=== PATIENT | male | born 1960 | race Caucasian/White ===

== ENCOUNTER 2021-09-24 13:38 | Inpatient (IN) | payer MEDICARE ==
--- NOTE | 2021-09-24 13:53 | ED ---
General Adult HPI - General Stated complaint: SOB Time Seen by Provider: 09/24/21 13:39 Source: patient, EMS, RN notes reviewed, old records reviewed Limitations: no limitations - History of Present Illness Initial comments: 60-year-old male presenting for evaluation of increased dyspnea. Symptoms have been present today. He does report cough. No chest pain. No fever. He has a history of congestive heart failure and coronary artery disease. He has a pacemaker. He states he's had increased lower extremity edema as well. - Related Data Allergies Allergy/AdvReac Type Severity Reaction Status Date / Time isosorbide [From Imdur] Allergy Unknown Verified 09/24/21 13:55 quinapril [From Accupril] Allergy Unknown Verified 09/24/21 13:55 Sulfa (Sulfonamide Allergy Unknown Verified 09/24/21 13:55 Antibiotics) Review of Systems ROS Statement: Those systems with pertinent positive or pertinent negative responses have been documented in the HPI. ROS Other: All systems not noted in ROS Statement are negative. General Exam General appearance: alert, in no apparent distress Head exam: Present: atraumatic, normocephalic Eye exam: Present: normal appearance, PERRL ENT exam: Present: normal exam Neck exam: Present: normal inspection. Absent: tenderness, meningismus Respiratory exam: Present: wheezes. Absent: respiratory distress, rales Cardiovascular Exam: Present: regular rate, normal rhythm GI/Abdominal exam: Present: soft. Absent: distended, tenderness, guarding Extremities exam: Present: pedal edema Neurological exam: Present: alert, oriented X3, CN II-XII intact. Absent: motor sensory deficit Psychiatric exam: Present: normal affect, normal mood Skin exam: Present: warm, dry. Absent: cyanosis, diaphoretic Course Vital Signs 09/24/21 09/24/21 13:50 14:43 Temperature 97.8 F Pulse Rate 98 100 Respiratory 18 18 Rate Blood Pressure 117/80 O2 Sat by Pulse 96 Oximetry EKG Findings - EKG Comments: EKG Findings:: EKG: Ventricular paced rhythm rate of 103, MA interval 158, QRS duration 176, QTC [address] segment elevation Medical Decision Making - Medical Decision Making 60-year-old male with increased dyspnea, lower extremity edema. Patient is a current smoker. He has not been formally diagnosed with COPD. Additionally he has significant peripheral edema. I suspect the combination of CHF and COPD. Chest x-ray shows some pulmonary edema and cardiomegaly. No large focal pneumonia, no pneumothorax. He has a mild leukocytosis normal electrolytes. His initial troponin is negative. BNP is pending. He's given Lasix in the emergency department as well as albuterol, Atrovent and steroids. This is a multifactorial dyspnea. He is anticoagulated at baseline. Case discussed with Dr. Razo who will admit. The bilirubin is elevated 2.5 as well as AST and ALT. Patient does not have any abdominal pain or tenderness. He does not drink alcohol regularly. - Lab Data Result diagrams: 09/24/21 13:57 09/24/21 13:57 Lab Results 09/24/21 09/24/21 09/24/21 Range/Units 13:57 13:57 13:57 WBC 12.6 H (3.8-10.6) k/uL RBC 4.86 (4.30-5.90) m/uL Hgb 13.7 (13.0-17.5) gm/dL Hct 43.3 (39.0-53.0) % MCV 89.1 (80.0-100.0) fL MCH 28.1 (25.0-35.0) pg MCHC 31.6 (31.0-37.0) g/dL RDW 15.2 (11.5-15.5) % Plt Count 240 (150-450) k/uL MPV 8.5 Neutrophils % 78 % Lymphocytes % 11 % Monocytes % 9 % Eosinophils % 1 % Basophils % 1 % Neutrophils # 9.8 H (1.3-7.7) k/uL Lymphocytes # 1.4 (1.0-4.8) k/uL Monocytes # 1.1 H (0-1.0) k/uL Eosinophils # 0.1 (0-0.7) k/uL Basophils # 0.1 (0-0.2) k/uL Hypochromasia Slight PT 15.3 H (9.0-12.0) sec INR 1.5 H (<1.2) APTT 24.4 (22.0-30.0) sec Sodium 134 L (137-145) mmol/L Potassium 4.6 (3.5-5.1) mmol/L Chloride 101 (98-107) mmol/L Carbon Dioxide 23 (22-30) mmol/L Anion Gap 10 mmol/L BUN 28 H (9-20) mg/dL Creatinine 0.71 (0.66-1.25) mg/dL Est GFR (CKD-EPI)AfAm >90 (>60 ml/min/1.73 sqM) Est GFR (CKD-EPI)NonAf >90 (>60 ml/min/1.73 sqM) Glucose 103 H (74-99) mg/dL Calcium 8.5 (8.4-10.2) mg/dL Magnesium 1.9 (1.6-2.3) mg/dL Total Bilirubin 3.5 H (0.2-1.3) mg/dL AST 163 H (17-59) U/L ALT 150 H (4-49) U/L Alkaline Phosphatase 114 (38-126) U/L Troponin I (0.000-0.034) ng/mL Total Protein 6.6 (6.3-8.2) g/dL Albumin 3.6 (3.5-5.0) g/dL 09/24/21 Range/Units 13:57 WBC (3.8-10.6) k/uL RBC (4.30-5.90) m/uL Hgb (13.0-17.5) gm/dL Hct (39.0-53.0) % MCV (80.0-100.0) fL MCH (25.0-35.0) pg MCHC (31.0-37.0) g/dL RDW (11.5-15.5) % Plt Count (150-450) k/uL MPV Neutrophils % % Lymphocytes % % Monocytes % % Eosinophils % % Basophils % % Neutrophils # (1.3-7.7) k/uL Lymphocytes # (1.0-4.8) k/uL Monocytes # (0-1.0) k/uL Eosinophils # (0-0.7) k/uL Basophils # (0-0.2) k/uL Hypochromasia PT (9.0-12.0) sec INR (<1.2) APTT (22.0-30.0) sec Sodium (137-145) mmol/L Potassium (3.5-5.1) mmol/L Chloride (98-107) mmol/L Carbon Dioxide (22-30) mmol/L Anion Gap mmol/L BUN (9-20) mg/dL Creatinine (0.66-1.25) mg/dL Est GFR (CKD-EPI)AfAm (>60 ml/min/1.73 sqM) Est GFR (CKD-EPI)NonAf (>60 ml/min/1.73 sqM) Glucose (74-99) mg/dL Calcium (8.4-10.2) mg/dL Magnesium (1.6-2.3) mg/dL Total Bilirubin (0.2-1.3) mg/dL AST (17-59) U/L ALT (4-49) U/L Alkaline Phosphatase (38-126) U/L Troponin I 0.031 (0.000-0.034) ng/mL Total Protein (6.3-8.2) g/dL Albumin (3.5-5.0) g/dL Disposition Clinical Impression: Congestive heart failure, Acute exacerbation of chronic obstructive pulmonary disease Disposition: ADMITTED IP TO THIS HOSP Condition: Stable Is patient prescribed a controlled substance at d/c from ED?: No Referrals: None,Stated [Primary Care Provider] - 1-2 days Time of Disposition: 14:51
[2021-09-24 14:15] LABS: Basophils # (A) 0.1 k/uL (0-0.2); Basophils % (A) 1 %; Eosinophils # (A) 0.1 k/uL (0-0.7); Eosinophils % (A) 1 %; HCT 43.3 % (39.0-53.0); HGB 13.7 gm/dL (13.0-17.5); Hypochromasia Slight; Lymphocytes # (A) 1.4 k/uL (1.0-4.8); Lymphocytes % (A) 11 %; MCH 28.1 pg (25.0-35.0); MCHC 31.6 g/dL (31.0-37.0); MCV 89.1 fL (80.0-100.0); Mean Platelet Volume 8.5; Monocytes # (A) 1.1 k/uL (0-1.0); Monocytes % (A) 9 %; Neutrophils # (A) 9.8 k/uL (1.3-7.7); Neutrophils % (A) 78 %; Platelet Count 240 k/uL (150-450); RBC 4.86 m/uL (4.30-5.90); RDW 15.2 % (11.5-15.5); WBC 12.6 k/uL (3.8-10.6)
[2021-09-24 14:24] LABS: ALT 150 U/L (4-49); AST 163 U/L (17-59); African American GFR (CKD) >90 (>60 ml/min/1.73 sqM); Albumin 3.6 g/dL (3.5-5.0); Alkaline Phosphatase 114 U/L (38-126); Anion Gap 10 mmol/L; Blood Urea Nitrogen 28 mg/dL (9-20); Calcium 8.5 mg/dL (8.4-10.2); Carbon Dioxide 23 mmol/L (22-30); Chloride 101 mmol/L (98-107); Glucose 103 mg/dL (74-99); Magnesium 1.9 mg/dL (1.6-2.3); Non-African American GFR(CKD) >90 (>60 ml/min/1.73 sqM); Potassium 4.6 mmol/L (3.5-5.1); Sodium 134 mmol/L (137-145); Total Bilirubin 3.5 mg/dL (0.2-1.3); Total Protein 6.6 g/dL (6.3-8.2)
[2021-09-24] MEDS ORDERED: IPRATROPIUM-ALBUTEROL 3 ML NEB INHALATION STA (14:26)
[2021-09-24] MEDS ORDERED: ALBUTEROL NEBULIZED 2.5 MG/3 ML INHALATION STA (14:26)
[2021-09-24 14:31] LABS: INR 1.5 (<1.2); Partial Thromboplastin Time 24.4 sec (22.0-30.0); Prothrombin Time 15.3 sec (9.0-12.0)
--- NOTE | 2021-09-24 14:33 | XR ---
EXAMINATION TYPE: XR chest 2V DATE OF EXAM: 09/24/2021 COMPARISON: NONE HISTORY: Difficulty breathing TECHNIQUE: Frontal and lateral views of the chest are obtained. FINDINGS: The heart is enlarged. There is a generator in left pectoral region, leads are present wit hin the coronary sinus, right ventricle. No evident pneumothorax or sizable effusion. Interstitium is increased. Perihilar vascular indistinctness is noted. Bones are within normal limits. Aorta is dens e. IMPRESSION: Findings suggest early interstitial edema. There is cardiomegaly, correlate.
[2021-09-24] MEDS ORDERED: FUROSEMIDE 10 MG/ML 4 ML VIAL IV STA (14:34)
[2021-09-24] MEDS ORDERED: IPRATROPIUM-ALBUTEROL 3 ML NEB INHALATION PRN (14:48)
[2021-09-24] MEDS: methylPREDNISolone SOD SUCCI 125 MG/2 ML VIAL IV SCH (18:36)
[2021-09-24 19:04] LABS: Appearance,Urine Clear (Clear); Bilirubin,Urine Negative (Negative); Blood,Urine Small (Negative); Color,Urine Light Yellow; Glucose,Urine (UA) Negative (Negative); Hyaline Casts,Urine 5 /lpf (0-2); Ketones,Urine Negative (Negative); Leukocyte Esterase,Urine Negative (Negative); Mucus,Urine Rare /hpf; Nitrite,Urine Negative (Negative); Protein,Urine Negative (Negative); RBC,Urine 5 /hpf (0-5); Specific Gravity,Urine 1.007 (1.001-1.035); WBC,Urine <1 /hpf (0-5)
[2021-09-24] MEDS: IPRATROPIUM-ALBUTEROL 3 ML NEB INHALATION SCH (20:12)
[2021-09-24] MEDS: ATORVASTATIN 80 MG TAB PO SCH (20:27)
[2021-09-24] MEDS: APIXABAN 5 MG TAB PO SCH (20:27)
[2021-09-24] MEDS: FUROSEMIDE 10 MG/ML 4 ML VIAL IV SCH (20:27)
[2021-09-24] MEDS: carvediloL 6.25 MG TAB PO SCH (20:29)
[2021-09-24 20:39] LABS: Glucose,Whole Blood 143 mg/dL (70-110)
[2021-09-24] MEDS: INSULIN ASPART (NovoLOG) 100 UNIT/ML VIAL SQ SCH (20:47)
[2021-09-25] MEDS: methylPREDNISolone SOD SUCCI 125 MG/2 ML VIAL IV SCH ×3 (00:04→12:26)
--- NOTE | 2021-09-25 00:22 | CT ---
EXAMINATION TYPE: CT chest wo con DATE OF EXAM: 09/24/2021 COMPARISON: None HISTORY: COPD CT DLP: 500.1 mGycm Automated exposure control for dose reduction was used. Images obtained from the thoracic inlet to the diaphragm with no contrast. There is a moderate size right pleural effusion. Heart is enlarged. There is a 1.5 cm pretracheal lym ph node. There is coronary artery calcification. No pericardial effusion. There are no hilar masses. Thoracic aorta shows some atheromatous changes. No aneurysm. The ascending aorta measures 3.8 cm. Tho racic spine is intact. No compression fracture. Upper abdominal soft tissues are intact. IMPRESSION: Moderate cardiomegaly. Right pleural effusion. This could be chronic congestive heart failure. Nonspe cific pretracheal lymph node. No suspicious pulmonary mass. Mild increased pulmonary interstitial den sity.
[2021-09-25 06:06] LABS: Glucose,Whole Blood 120 mg/dL (70-110)
[2021-09-25] MEDS: carvediloL 6.25 MG TAB PO SCH ×2 (06:12→16:26)
[2021-09-25] MEDS: INSULIN ASPART (NovoLOG) 100 UNIT/ML VIAL SQ SCH ×4 (06:14→20:32)
--- NOTE | 2021-09-25 06:51 | HP ---
HISTORY AND PHYSICAL 60-year-old comes in with increasing shortness of breath and cough. No chest pain. No fevers. History of CHF, coronary artery disease, pacemaker, increased lower extremity edema. He was outside in the heat all day. He possibly has sleep apnea at home. ALLERGIES: ALLERGIES ARE TO IMDUR, ACCUPRIL, SULFA. REVIEW OF SYMPTOMS: 14-point review of systems as mentioned above, otherwise negative. PHYSICAL EXAM: Temperature 97, pulse 98-100, respiratory 16 to 18, blood pressure 117/80. Cardiovascular: S1-S2. Lungs: Wheezes at the bases. GI soft. Extremities: 2 to 3+ edema. GI is distended. Ophthalmologic: Pupils equal, round, reactive. ENT: External ear canals within normal limits. EKG shows ventricular paced rhythm. ASSESSMENT: 60-year-old white male with increasing dyspnea, lower edema,nicotine addiction, COPD exacerbation CHF, COPD, mild leukocytosis, normal electrolytes. Troponins negative. BNP is pending. Lasix in the ER, Atrovent, steroids. Continue current treatments. Consult Pulmonary and cardiology. Please see further orders. MMODL / IJN: [id number] /
[2021-09-25] MEDS: IPRATROPIUM-ALBUTEROL 3 ML NEB INHALATION SCH ×4 (08:02→19:59)
[2021-09-25] MEDS: FUROSEMIDE 10 MG/ML 4 ML VIAL IV SCH ×2 (08:21→17:29)
[2021-09-25] MEDS: APIXABAN 5 MG TAB PO SCH ×2 (08:21→20:11)
[2021-09-25] MEDS: ASPIRIN 81 MG PO SCH (08:21)
--- NOTE | 2021-09-25 09:25 | US ---
EXAMINATION TYPE: US abdomen complete DATE OF EXAM: 09/25/2021 COMPARISON: NONE CLINICAL HISTORY: elevated bilirubin. Abnormal labs EXAM MEASUREMENTS: Liver Length: 16.7 cm Gallbladder Wall: 0.2 cm CBD: 0.3 cm Spleen: 10.8 cm Right Kidney: 11.1 x 5.3 x 4.9 cm Left Kidney: 10.0 x 5.1 x 5.4 cm Limited due to bowel gas Pancreas: Obscured by bowel gas Liver: wnl Gallbladder: wnl Evidence for sonographic Arambula's sign: neg CBD: wnl Spleen: wnl Right Kidney: No hydronephrosis or masses seen Left Kidney: No hydronephrosis or masses seen Upper IVC: wnl Abd Aorta: Obscured by overlying bowel gas IMPRESSION: No acute process.
--- NOTE | 2021-09-25 11:06 | CA ---
Transthoracic Echo Report Name: Alex Martin Age: 60 Gender: M : 1960 Exam Date: 09/25/2021 08:33 Exam Location: [facility] Ht (in): 69 Wt (lb): 201 Ordering Physician: Alex Razo MD Attending/Referring Phys: Global Marketing Specialist Sydney Larsen RDCS Procedure CPT: Indications: chf Cardiac Hx: Hx of mi and stents,AICD Technical Quality: Good Contrast 1: Total Dose (mL): Contrast 2: Total Dose (mL): MEASUREMENTS (Male / Female) Normal Values 2D ECHO LV Diastolic Diameter PLAX 7.4 cm 4.2 - 5.9 / 3.9 - 5.3 cm LV Systolic Diameter PLAX 6.4 cm IVS Diastolic Thickness 1.4 cm 0.6 - 1.0 / 0.6 - 0.9 cm LVPW Diastolic Thickness 1.2 cm 0.6 - 1.0 / 0.6 - 0.9 cm LV Relative Wall Thickness 0.3 RV Internal Dim ED PLAX 2.6 cm LA Volume 105.1 cm??? 18 - 58 / 22 - 52 cm??? M-MODE Aortic Root Diameter MM 3.0 cm LA Systolic Diameter MM 3.8 cm LA Ao Ratio MM 1.3 MV E Point Septal Separation 2.1 cm AV Cusp Separation MM 2.0 cm DOPPLER AV Peak Velocity 106.9 cm/s AV Peak Gradient 4.6 mmHg AI Peak Velocity 154.3 cm/s AI Peak Gradient 9.5 mmHg AI Pressure Half Time 442.1 ms MV Peak Velocity 142.0 cm/s MV Peak Gradient 8.1 mmHg MV Mean Velocity 91.8 cm/s MV Mean Gradient 4.0 mmHg MV Velocity Time Integral 43.4 cm MV Area PHT 2.5 cm??? MR Peak Velocity 465.5 cm/s MR Peak Gradient 86.7 mmHg Mitral E Point Velocity 121.6 cm/s Mitral A Point Velocity 43.8 cm/s Mitral E to A Ratio 2.8 MV Deceleration Time 305.1 ms MV E' Velocity 4.8 cm/s Mitral E to MV E' Ratio 25.3 TR Peak Velocity 257.9 cm/s TR Peak Gradient 26.6 mmHg Right Ventricular Systolic Press 29.3 mmHg FINDINGS Left Ventricle Mildly increased septal wall thickness. Severely increased left ventricular diastolic diameter. Left ventricular ejection fraction is estimated at 20 %. Grade 3 diastolic dysfunction. Right Ventricle Normal right ventricular size and function. Pacemaker lead noted in right ventricle Right Atrium Right atrium not well visualized. Left Atrium Severely increased left atrial volume. Mildly increased left atrial area. Mitral Valve Mitral valve thickened. Mitral annular calcification. Mild mitral stenosis. Severe mitral regurgitation with predominantly posterior leaflet tethering and posteriorly directed jet. Aortic Valve Structurally normal aortic valve without significant sclerosis or stenosis. There is no aortic regurgitation. Tricuspid Valve Structurally normal tricuspid valve without significant stenosis. Pulmonary artery systolic pressure is normal. Pulmonic Valve Structurally normal pulmonic valve without significant stenosis. There is no pulmonic regurgitation. Pericardium Normal pericardium without effusion. Aorta Normal aortic root dimension. CONCLUSIONS Mild LVH Severe cardiomyopathy left ventricular ejection fraction 20% with global hypokinesis Dilated left atrium Severe mitral regurgitation with predominantly posterior leaflet tethering and posteriorly directed jet Previewed by: Dr. Ramirez Avery DO (Electronically Signed) Final Date: 25 September 2021 11:04
[2021-09-25 11:39] LABS: Glucose,Whole Blood 346 mg/dL (70-110)
--- NOTE | 2021-09-25 12:08 | P.CRDCN ---
History of Present Illness Consult date: 09/25/21 History of present illness: HISTORY OF PRESENT ILLNESS: This is a 60-year-old male with a past medical history significant for with paroxysmal atrial fibrillation, permanent pacemaker insertion, congestive heart failure, hypertension, hyperlipidemia, and nicotine dependence. Patient follows with a heel [facility] out of [facility]. We have been asked to see the patient in consultation for congestive heart failure. Patient examined at the bedside. The patient presented to the hospital for chief complaint of increasing shortness of breath. He states he has been feeling short of breath for the past 6 weeks but his shortness of breath got worse over the past couple days which prompted him to come to the emergency room. He denies any chest pain or pressure. Denies dizziness or lightheadedness. The patient was started on IV Lasix in the emergency room. * EKG reveals ventricular paced rhythm * Chest xray findings suggest early interstitial edema. Cardiomegaly * Laboratory data: WBC 12.6. Hemoglobin 13.7. Platelet count 240. Sodium 134. Potassium 4.6. BUN 28. Creatinine 0.71. AST 163. ALT 150. ProBNP 11,800. * Current home cardiac medications include lisinopril 2.5 mg daily, Lasix 40 mg twice a day, aspirin 81 mg daily, carvedilol 6.25 mg twice a day, Lipitor 80 mg at night, and Eliquis 5 mg twice a day REVIEW OF SYSTEMS: At the time of my exam: CONSTITUTIONAL: Denies fever or chills. HEENT: Denies blurred vision, vision changes, or eye pain. Denies hemoptysis CARDIOVASCULAR: Denies chest pain. Denies orthopnea. Denies PND. Denies palpitations RESPIRATORY: Denies shortness of breath. GASTROINTESTINAL: Denies abdominal pain. Denies nausea or vomiting. HEMATOLOGIC: Denies bleeding disorders. GENITOURINARY: Denies any blood in urine. SKIN: Denies pruitis. Denies rash. PHYSICAL EXAM: VITAL SIGNS: Reviewed. GENERAL: Well-developed in no acute distress. HEENT: Head is normocephalic. Pupils are equal, round. Sclerae anicteric. Mucous membranes of the mouth are moist. Neck supple. No JVD or thyromegaly LUNGS: Respirations even and unlabored. Lungs diminished with bibasilar crackles. Wheezing and rhonchi noted. HEART: Regular rate and rhythm. S1 and S2 heard. ABDOMEN: Soft. Nondistended. Nontender. EXTREMITIES: Normal range of motion. No clubbing or cyanosis. Peripheral pulses intact. 2+ lower extremity edema NEUROLOGIC: Awake and alert. Oriented x 3. ASSESSMENT: Shortness of breath Acute on chronic heart failure, type unknown, echo pending Possible COPD exacerbation Paroxysmal atrial fibrillation History of permanent pacemaker insertion Coronary artery disease Hypertension Hyperlipidemia Nicotine dependence Elevated LFTs PLAN: Obtain 2-D echo to assess cardiac structure and function Resume home cardiac medications Continue IV Lasix Daily weights Accurate I&O Monitor kidney function Further recommendations pending patient's course Nurse practitioner note has been reviewed by physician. Signing provider agrees with the documented findings, assessment, and plan of care. Past Medical History Past Medical History: Atrial Fibrillation, Heart Failure, Hypertension History of Any Multi-Drug Resistant Organisms: None Reported Past Surgical History: Appendectomy, Heart Catheterization With Stent, Orthopedic Surgery, Pacemaker Additional Past Surgical History / Comment(s): shoulder surgery, facial reconstruction of nose Date of Last Stent Placement:: 2012 Type of Cardiac Device: Permanent Pacemaker Device Placement Date:: 2012 Past Psychological History: No Psychological Hx Reported Smoking Status: Current every day smoker Past Alcohol Use History: None Reported Past Drug Use History: None Reported Medications and Allergies Home Medications Medication Instructions Recorded Confirmed Type Apixaban [Eliquis] 5 mg PO BID 09/24/21 09/24/21 History Aspirin EC [Ecotrin Low Dose] 81 mg PO DAILY 09/24/21 09/24/21 History Atorvastatin [Lipitor] 80 mg PO HS 09/24/21 09/24/21 History Furosemide [Lasix] 40 mg PO BID@0900,1600 09/24/21 09/24/21 History Nitroglycerin Sl Tabs [Nitrostat] 0.4 mg SL Q5M PRN 09/24/21 09/24/21 History carvediloL [Coreg] 6.25 mg PO BID 09/24/21 09/24/21 History lisinopriL 2.5 mg PO DAILY 09/24/21 09/24/21 History Allergies Allergy/AdvReac Type Severity Reaction Status Date / Time isosorbide [From Imdur] Allergy Anaphylaxis Verified 09/24/21 15:21 quinapril [From Accupril] Allergy Swelling Verified 07/19/22 15:21 hands, feet and joints Sulfa (Sulfonamide Allergy Rash/Hives Verified 09/24/21 15:21 Antibiotics) Physical Exam Vitals: Vital Signs Temp Pulse Pulse Resp BP BP Pulse Ox 09/25/21 11:17 89 20 112/76 92 L 09/25/21 08:18 97.6 F 83 16 110/71 96 09/25/21 08:11 87 09/25/21 08:02 82 09/25/21 08:00 83 09/25/21 03:49 97.8 F 93 18 87/62 88 L 09/25/21 01:57 20 09/25/21 00:43 97.6 F 81 20 102/71 93 L 09/24/21 20:20 101 H 18 09/24/21 20:14 98 18 09/24/21 20:00 97.8 F 66 24 102/76 99 09/24/21 18:55 97.9 F 84 17 95/71 94 L 09/24/21 18:07 98.4 F 88 24 106/57 96 09/24/21 16:35 103 H 18 117/85 98 09/24/21 15:16 105 H 22 105/72 99 09/24/21 15:02 101 H 18 09/24/21 14:43 100 18 09/24/21 13:50 97.8 F 98 18 117/80 96 Intake and Output 09/24/21 09/25/21 09/25/21 22:59 06:59 14:59 Intake Total 120 320 120 Output Total 1200 1300 Balance -1080 -980 120 Intake: Oral 120 320 120 Output: Urine 1200 1300 Other: Voiding Method Toilet Weight 95.254 kg 91.2 kg 90.8 kg Results 09/24/21 13:57 09/24/21 13:57 Cardiac Enzymes 09/24/21 09/24/21 Range/Units 13:57 13:57 AST 163 H (17-59) U/L Troponin I 0.031 (0.000-0.034) ng/mL Coagulation 09/24/21 Range/Units 13:57 PT 15.3 H (9.0-12.0) sec APTT 24.4 (22.0-30.0) sec CBC 09/24/21 Range/Units 13:57 WBC 12.6 H (3.8-10.6) k/uL RBC 4.86 (4.30-5.90) m/uL Hgb 13.7 (13.0-17.5) gm/dL Hct 43.3 (39.0-53.0) % Plt Count 240 (150-450) k/uL Comprehensive Metabolic Panel 09/24/21 Range/Units 13:57 Sodium 134 L (137-145) mmol/L Potassium 4.6 (3.5-5.1) mmol/L Chloride 101 (98-107) mmol/L Carbon Dioxide 23 (22-30) mmol/L BUN 28 H (9-20) mg/dL Creatinine 0.71 (0.66-1.25) mg/dL Glucose 103 H (74-99) mg/dL Calcium 8.5 (8.4-10.2) mg/dL AST 163 H (17-59) U/L ALT 150 H (4-49) U/L Alkaline Phosphatase 114 (38-126) U/L Total Protein 6.6 (6.3-8.2) g/dL Albumin 3.6 (3.5-5.0) g/dL Current Medications Generic Name Dose Route Start Last Admin Trade Name Freq PRN Reason Stop Dose Admin Albuterol/Ipratropium 3 ml 09/24/21 14:48 Ipratropium-Albuterol 3 Ml Neb INHALATION RT-Q4H PRN Shortness Of Breath Or Wheezing Albuterol/Ipratropium 3 ml 09/24/21 20:00 09/25/21 11:10 Ipratropium-Albuterol 3 Ml Neb INHALATION Not Given RT-QID JEFF Apixaban 5 mg 09/24/21 21:00 09/25/21 08:21 Apixaban 5 Mg Tab PO 5 mg BID JEFF Administration Protocol Aspirin 81 mg 09/25/21 09:00 09/25/21 08:21 Aspirin 81 Mg PO 81 mg DAILY JFEF Administration Atorvastatin Calcium 80 mg 09/24/21 21:00 09/24/21 20:27 Atorvastatin 80 Mg Tab PO 80 mg HS JEFF Administration Carvedilol 6.25 mg 09/24/21 21:00 09/25/21 06:12 Carvedilol 6.25 Mg Tab PO 6.25 mg AC-BID JEFF Administration Furosemide 40 mg 09/24/21 21:00 09/25/21 08:21 Furosemide 10 Mg/Ml 4 Ml Vial IV 40 mg Q12HR JEFF Administration Insulin Aspart 0 unit 09/24/21 21:00 09/25/21 06:14 Insulin Aspart (Novolog) 100 Unit/Ml Vial SQ Not Given ACHS PENDING SALE TO [facility] Protocol Lisinopril 2.5 mg 09/25/21 09:00 09/25/21 08:21 Lisinopril 2.5 Mg Tab PO 2.5 mg DAILY JEFF Administration Methylprednisolone Sodium Succinate 60 mg 09/24/21 18:00 09/25/21 06:11 Methylprednisolone Sod Succi 125 Mg/2 Ml Vial IV 60 mg Q6HR JEFF Administration Intake and Output 09/24/21 09/25/21 09/25/21 22:59 06:59 14:59 Intake Total 120 320 120 Output Total 1200 1300 Balance -1080 980 120 Intake: Oral 120 320 120 Output: Urine 1200 1300 Other: Voiding Method Toilet Weight 95.254 kg 91.2 kg 90.8 kg Patient Weight 09/26/21 06:59 Weight 90.8 kg 09/24/21 13:57 09/24/21 13:57
--- NOTE | 2021-09-25 12:14 | P.GSCN ---
History of Present Illness Consult date: 09/25/21 History of present illness: 60-year-old gentleman in the hospital with congestive heart failure. I been asked see the patient because of difficulty with urination. The patient states that he has had problems for the last several months. He notices decreasing flow increasing frequency and nocturia to 3 times. He has postvoid dribbling. He is never seen a urologist. He does not have a medical doctor. He is not had any treatment for this. He had a rectal examination in the past that was apparently "normal".His urine is clear Review of Systems All systems: negative - Constitutional Denies fever, Denies weight loss - EENT Eyes: denies blurred vision Ears, nose, mouth and throat: Denies dysphagia - Cardiovascular Denies chest pain, Denies shortness of breath - Respiratory Denies cough, Denies 7 - Gastrointestinal Reports as per HPI - Genitourinary Denies dysuria, Denies hematuria - Integumentary Denies rash, Denies unusual bruising - Neurological Denies headaches, Denies syncope - Hematologic/Lymphatic Denies easy bleeding, Denies easy bruising Past Medical History Past Medical History: Atrial Fibrillation, Heart Failure, Hypertension History of Any Multi-Drug Resistant Organisms: None Reported Past Surgical History: Appendectomy, Heart Catheterization With Stent, Orthopedic Surgery, Pacemaker Additional Past Surgical History / Comment(s): shoulder surgery, facial reconstruction of nose Date of Last Stent Placement:: 2012 Type of Cardiac Device: Permanent Pacemaker Device Placement Date:: 2012 Past Psychological History: No Psychological Hx Reported Smoking Status: Current every day smoker Past Alcohol Use History: None Reported Past Drug Use History: None Reported Medications and Allergies Home Medications Medication Instructions Recorded Confirmed Type Apixaban [Eliquis] 5 mg PO BID 09/24/21 09/24/21 History Aspirin EC [Ecotrin Low Dose] 81 mg PO DAILY 09/24/21 09/24/21 History Atorvastatin [Lipitor] 80 mg PO HS 09/24/21 09/24/21 History Furosemide [Lasix] 40 mg PO BID@0900,1600 09/24/21 09/24/21 History Nitroglycerin Sl Tabs [Nitrostat] 0.4 mg SL Q5M PRN 09/24/21 09/24/21 History carvediloL [Coreg] 6.25 mg PO BID 09/24/21 09/24/21 History lisinopriL 2.5 mg PO DAILY 09/24/21 09/24/21 History Allergies Allergy/AdvReac Type Severity Reaction Status Date / Time isosorbide [From Imdur] Allergy Anaphylaxis Verified 09/24/21 15:21 quinapril [From Accupril] Allergy Swelling Verified 09/24/21 15:21 hands, feet and joints Sulfa (Sulfonamide Allergy Rash/Hives Verified 09/24/21 15:21 Antibiotics) Surgical - Exam Vital Signs Temp Pulse Resp BP Pulse Ox 97.8 F 98 18 117/80 96 09/24/21 13:50 09/24/21 13:50 09/24/21 13:50 09/24/21 13:50 09/24/21 13:50 - General well developed, well nourished, no distress - Eyes PERRL - ENT no hearing loss - Neck trachea midline - Respiratory normal expansion, normal respiratory effort - Cardiovascular Rhythm: regular - Abdomen Abdomen: soft, non tender - Genitourinary prostate 30 gm benign normal penis with no external lesions, testicles present - Integumentary no rash, no growths - Musculoskeletal Lower extremity edema bilaterally normal posture - Psychiatric oriented to time, oriented to person, oriented to place, speech is normal, memory intact Results - Labs 09/24/21 13:57 09/24/21 13:57 Abnormal Lab Results - Last 24 Hours (Table) 09/24/21 09/24/21 09/24/21 Range/Units 13:57 13:57 13:57 WBC 12.6 H (3.8-10.6) k/uL Neutrophils # 9.8 H (1.3-7.7) k/uL Monocytes # 1.1 H (0-1.0) k/uL PT 15.3 H (9.0-12.0) sec INR 1.5 H (<1.2) Sodium 134 L (137-145) mmol/L BUN 28 H (9-20) mg/dL Glucose 103 H (74-99) mg/dL POC Glucose (mg/dL) (70-110) mg/dL Total Bilirubin 3.5 H (0.2-1.3) mg/dL AST 163 H (17-59) U/L ALT 150 H (4-49) U/L Urine Blood (Negative) Hyaline Casts (0-2) /lpf Urine Mucus (None) /hpf 09/24/21 09/24/21 09/25/21 Range/Units 18:46 20:36 06:05 WBC (3.8-10.6) k/uL Neutrophils # (1.3-7.7) k/uL Monocytes # (0-1.0) k/uL PT (9.0-12.0) sec INR (<1.2) Sodium (137-145) mmol/L BUN (9-20) mg/dL Glucose (74-99) mg/dL POC Glucose (mg/dL) 143 H 120 H (70-110) mg/dL Total Bilirubin (0.2-1.3) mg/dL AST (17-59) U/L ALT (4-49) U/L Urine Blood Small H (Negative) Hyaline Casts 5 H (0-2) /lpf Urine Mucus Rare H (None) /hpf 09/25/21 Range/Units 11:37 WBC (3.8-10.6) k/uL Neutrophils # (1.3-7.7) k/uL Monocytes # (0-1.0) k/uL PT (9.0-12.0) sec INR (<1.2) Sodium (137-145) mmol/L BUN (9-20) mg/dL Glucose (74-99) mg/dL POC Glucose (mg/dL) 346 H (70-110) mg/dL Total Bilirubin (0.2-1.3) mg/dL AST (17-59) U/L ALT (4-49) U/L Urine Blood (Negative) Hyaline Casts (0-2) /lpf Urine Mucus (None) /hpf Diabetes panel 09/24/21 Range/Units 13:57 Sodium 134 L (137-145) mmol/L Potassium 4.6 (3.5-5.1) mmol/L Chloride 101 (98-107) mmol/L Carbon Dioxide 23 (22-30) mmol/L BUN 28 H (9-20) mg/dL Creatinine 0.71 (0.66-1.25) mg/dL Glucose 103 H (74-99) mg/dL Calcium 8.5 (8.4-10.2) mg/dL AST 163 H (17-59) U/L ALT 150 H (4-49) U/L Alkaline Phosphatase 114 (38-126) U/L Total Protein 6.6 (6.3-8.2) g/dL Albumin 3.6 (3.5-5.0) g/dL Calcium panel 09/24/21 Range/Units 13:57 Calcium 8.5 (8.4-10.2) mg/dL Albumin 3.6 (3.5-5.0) g/dL Pituitary panel 09/24/21 Range/Units 13:57 Sodium 134 L (137-145) mmol/L Potassium 4.6 (3.5-5.1) mmol/L Chloride 101 (98-107) mmol/L Carbon Dioxide 23 (22-30) mmol/L BUN 28 H (9-20) mg/dL Creatinine 0.71 (0.66-1.25) mg/dL Glucose 103 H (74-99) mg/dL Calcium 8.5 (8.4-10.2) mg/dL Adrenal panel 09/24/21 Range/Units 13:57 Sodium 134 L (137-145) mmol/L Potassium 4.6 (3.5-5.1) mmol/L Chloride 101 (98-107) mmol/L Carbon Dioxide 23 (22-30) mmol/L BUN 28 H (9-20) mg/dL Creatinine 0.71 (0.66-1.25) mg/dL Glucose 103 H (74-99) mg/dL Calcium 8.5 (8.4-10.2) mg/dL Total Bilirubin 3.5 H (0.2-1.3) mg/dL AST 163 H (17-59) U/L ALT 150 H (4-49) U/L Alkaline Phosphatase 114 (38-126) U/L Total Protein 6.6 (6.3-8.2) g/dL Albumin 3.6 (3.5-5.0) g/dL - Imaging US - kidney/bladder: report reviewed, image reviewed Assessment and Plan Assessment: Impression: Congestive heart failure with coronary artery disease. BPH with obstruction. Recommendations: The patient will be started on Flomax. I'll check a postvoid residual. I will follow this with you.
--- NOTE | 2021-09-25 15:08 | P.CNPUL ---
History of Present Illness Consult date: 09/25/21 Reason for consult: dyspnea, cough, COPD, hypoxemia Chief complaint: Progressive shortness of breath for last 2-3 days History of present illness: Patient is a 60-year-old male with extensive history of smoking and nicotine use patient has prior medical history of hypertension and hypertensive cardiovascular disease patient presented into the hospital with progressive shortness of breath intermittent dry nonproductive cough and lower extremity edema. Patient does have a prior history of coronary artery disease status post pacemaker insertion, proximal atrial fibrillation, dyslipidemia, extensive history of smoking and nicotine use. Patient underwent computed tomography scan of the chest cardiomegaly is noted along with a right-sided pleural effusion CHF-like changes along with interstitial edema, ultrasound of the liver and gallbladder and abdomen no acute processes identified, echocardiogram revealed severe cardiomyopathy with left ventricular ejection fraction 20% with global hypokinesia along with severe MR has been noted. Labs reviewed white cell count is 12,600, PT/INR 15/1.5, sodium 134, urine creatinine is 28/0.7, total bilirubin is 3.5, AST ALT 150/163. Currently patient is being treated with bronchodilators 4 times a day along with continuation of direct oral anticoagulation, continuation of home medicines patient is being given Lasix 40 mg every 12 also on IV Solu-Medrol 40 mg every 8 hourly Review of Systems All systems: negative Past Medical History Past Medical History: Atrial Fibrillation, Heart Failure, Hypertension History of Any Multi-Drug Resistant Organisms: None Reported Past Surgical History: Appendectomy, Heart Catheterization With Stent, Orthopedic Surgery, Pacemaker Additional Past Surgical History / Comment(s): shoulder surgery, facial reconstruction of nose Date of Last Stent Placement:: 2012 Type of Cardiac Device: Permanent Pacemaker Device Placement Date:: 2012 Past Psychological History: No Psychological Hx Reported Smoking Status: Current every day smoker Past Alcohol Use History: None Reported Past Drug Use History: None Reported Medications and Allergies Home Medications Medication Instructions Recorded Confirmed Type Apixaban [Eliquis] 5 mg PO BID 09/24/21 09/24/21 History Aspirin EC [Ecotrin Low Dose] 81 mg PO DAILY 09/24/21 09/24/21 History Atorvastatin [Lipitor] 80 mg PO HS 09/24/21 09/24/21 History Furosemide [Lasix] 40 mg PO BID@0900,1600 09/24/21 09/24/21 History Nitroglycerin Sl Tabs [Nitrostat] 0.4 mg SL Q5M PRN 09/24/21 09/24/21 History carvediloL [Coreg] 6.25 mg PO BID 09/24/21 09/24/21 History lisinopriL 2.5 mg PO DAILY 09/24/21 09/24/21 History Allergies Allergy/AdvReac Type Severity Reaction Status Date / Time isosorbide [From Imdur] Allergy Anaphylaxis Verified 09/24/21 15:21 quinapril [From Accupril] Allergy Swelling Verified 09/24/21 15:21 hands, feet and joints Sulfa (Sulfonamide Allergy Rash/Hives Verified 09/24/21 15:21 Antibiotics) Physical Exam Vitals: Vital Signs Temp Pulse Pulse Resp BP BP Pulse Ox 09/25/21 13:23 89 09/25/21 11:17 89 20 112/76 92 L 09/25/21 08:18 97.6 F 83 16 110/71 96 09/25/21 08:11 87 09/25/21 08:02 82 09/25/21 08:00 83 09/25/21 03:49 97.8 F 93 18 87/62 88 L 09/25/21 01:57 20 09/25/21 00:43 97.6 F 81 20 102/71 93 L 09/24/21 20:20 101 H 18 09/24/21 20:14 98 18 09/24/21 20:00 97.8 F 66 24 102/76 99 09/24/21 18:55 97.9 F 84 17 95/71 94 L 09/24/21 18:07 98.4 F 88 24 106/57 96 09/24/21 16:35 103 H 18 117/85 98 09/24/21 15:16 105 H 22 105/72 99 09/24/21 15:02 101 H 18 Intake and Output 09/24/21 09/25/21 09/25/21 22:59 06:59 14:59 Intake Total 120 320 120 Output Total 1200 1300 Balance -1080 -980 120 Intake: Oral 120 320 120 Output: Urine 1200 1300 Other: Voiding Method Toilet Weight 95.254 kg 91.2 kg 90.8 kg - Constitutional General appearance: average body habitus, cooperative, disheveled - EENT Eyes: EOMI, PERRLA Ears: bilateral: normal - Neck Carotids: bilateral: upstroke normal Thyroid: bilateral: normal size - Respiratory Respiratory: bilateral: wheezing - Cardiovascular Rhythm: regular Heart sounds: normal: S1, S2 - Gastrointestinal General gastrointestinal: normal bowel sounds, soft - Integumentary + Edema of the lower extremity Integumentary: normal turgor - Neurologic Neurologic: CNII-XII intact - Musculoskeletal Musculoskeletal: gait normal, generalized weakness, strength equal bilaterally - Psychiatric Psychiatric: A&O x's 3, appropriate affect, intact judgment & insight Results - Laboratory Findings CBC and BMP: 09/24/21 13:57 09/24/21 13:57 PT/INR, D-dimer PT 15.3 sec (9.0-12.0) H 09/24/21 13:57 INR 1.5 (<1.2) H 09/24/21 13:57 Abnormal lab findings: Abnormal Labs 09/24/21 09/24/21 09/24/21 13:57 13:57 13:57 WBC 12.6 H Neutrophils # 9.8 H Monocytes # 1.1 H PT 15.3 H INR 1.5 H Sodium 134 L BUN 28 H Glucose 103 H POC Glucose (mg/dL) Total Bilirubin 3.5 H AST 163 H ALT 150 H Urine Blood Hyaline Casts Urine Mucus 09/24/21 09/24/21 09/25/21 18:46 20:36 06:05 WBC Neutrophils # Monocytes # PT INR Sodium BUN Glucose POC Glucose (mg/dL) 143 H 120 H Total Bilirubin AST ALT Urine Blood Small H Hyaline Casts 5 H Urine Mucus Rare H 09/25/21 11:37 WBC Neutrophils # Monocytes # PT INR Sodium BUN Glucose POC Glucose (mg/dL) 346 H Total Bilirubin AST ALT Urine Blood Hyaline Casts Urine Mucus - Diagnostic Findings Chest x-ray: report reviewed, image reviewed CT scan - chest: report reviewed, image reviewed Assessment and Plan Assessment: Acute on chronic systolic heart failure Right-sided pleural effusion related to above Progressive shortness of breath and lower extremity edema related to above COPD exacerbation Elevated liver enzyme related to passive hepatic congestion related to heart failure Lower extremity +3 edema related to heart failure/biventricular failure Severe mitral regurgitation Paroxysmal atrial fibrillation on diet control related ocular Mild hyponatremia Plan: Optimize therapy for heart failure including diuretics and afterload reducing agent Continue bronchodilators IV steroids Supplemental oxygen Deep breathing exercises incentive spirometry Smoking cessation counseling and advice Further plan of care as per clinical response of the patient Time with Patient: Greater than 30
[2021-09-25 16:15] LABS: Glucose,Whole Blood 140 mg/dL (70-110)
[2021-09-25] MEDS: methylPREDNISolone SOD SUCCI 40 MG/ML 1 ML VIAL IV SCH ×2 (16:26→23:10)
--- NOTE | 2021-09-25 17:18 | P.PN ---
Progress Note - Text Progress Note Date: 09/25/21 Interval history: I'm rounding for Dr. Alex Razo September 25: Some improvement in breathing. He does breakfast. Significant edema present. Some shortness of breath. Tired Active Medications Albuterol/Ipratropium (Ipratropium-Albuterol 3 Ml Neb) 3 ml INHALATION RT-Q4H PRN PRN Reason: Shortness Of Breath Or Wheezing Albuterol/Ipratropium (Ipratropium-Albuterol 3 Ml Neb) 3 ml INHALATION RT-QID JEFF Last Admin: 09/25/21 16:04 Dose: 3 ml Apixaban (Apixaban 5 Mg Tab) 5 mg PO BID PENDING SALE TO [facility]; Protocol Last Admin: 09/25/21 08:21 Dose: 5 mg Aspirin (Aspirin 81 Mg) 81 mg PO DAILY PENDING SALE TO [facility] Last Admin: 09/25/21 08:21 Dose: 81 mg Atorvastatin Calcium (Atorvastatin 80 Mg Tab) 80 mg PO HS PENDING SALE TO [facility] Last Admin: 09/24/21 20:27 Dose: 80 mg Carvedilol (Carvedilol 6.25 Mg Tab) 6.25 mg PO AC-BID PENDING SALE TO [facility] Last Admin: 09/25/21 16:26 Dose: 6.25 mg Furosemide (Furosemide 10 Mg/Ml 4 Ml Vial) 40 mg IV Q12HR PENDING SALE TO [facility] Last Admin: 09/25/21 08:21 Dose: 40 mg Insulin Aspart (Insulin Aspart (Novolog) 100 Unit/Ml Vial) 0 unit SQ ACHS JEFF; Protocol Last Admin: 09/25/21 16:26 Dose: 1 unit Lisinopril (Lisinopril 2.5 Mg Tab) 2.5 mg PO DAILY JEFF Last Admin: 09/25/21 08:21 Dose: 2.5 mg Methylprednisolone Sodium Succinate (Methylprednisolone Sod Succi 40 Mg/Ml 1 Ml Vial) 40 mg IV Q8HR JEFF Last Admin: 09/25/21 16:26 Dose: 40 mg Tamsulosin HCl (Tamsulosin 0.4 Mg Cap.Er.24h) 0.4 mg PO PC-SUPPER PENDING SALE TO [facility] On examination: VITAL SIGNS: [97.6, 91, 20, 93/61, 91% room air] GENERAL APPEARANCE: Laying in bed, awake, tired HEENT: Normal external appearance of nose and ear. Oral cavity normal EYES: Pupils equal. Conjunctiva normal. NECK: JVD possibly raised Mass not palpable. RESPIRATORY: Respiratory effort increased, basal crackles. CARDIOVASCULAR: First and second sounds normal. Significant edema ABDOMEN: Soft. Liver and spleen not palpable. No tenderness. No mass palpable. PSYCHIATRY: Alert and oriented x3. Mood and affect tired INVESTIGATIONS, reviewed in the clinical context: September 24: WBC 12.6 hemoglobin 13.7 potassium 4.6 creatinine 0.71 Abdominal ultrasound: Unremarkable CT chest: Moderate cardiomegaly. Right pleural effusion. 2-D echocardiogram: EF 20%. Severe MR. Assessment and plan: -Acute congestive heart failure exacerbation from systolic dysfunction EF 20%: Slow to respond IV Lasix 40 mg every 8. Coreg, Zestril 2.5 mg -BPH with obstruction Seen by Dr. Knox from urology. Started on Flomax -Right pleural effusion secondary to CHF Follow chest x-ray and clinically. Diuresis -Severe mitral regurgitation Follow with cardiology -Acute COPD exacerbation in a current smoker DuoNeb 4 times a day IV Solu-Medrol -Chronic nicotine dependence, cigarette smoker Nicotine patch -Persistent atrial fibrillation with a pacemaker Coreg 6.25 mg twice a day, eliquis 5 mg twice a day Follow BMP. IV Lasix. Jean-Pierre wrap. DuoNeb. Solu-Medrol. Up in chair as tolerated. Discussed with patient
[2021-09-25] MEDS: TAMSULOSIN 0.4 MG CAP.ER.24H PO SCH (17:29)
[2021-09-25] MEDS: ATORVASTATIN 80 MG TAB PO SCH (20:11)
[2021-09-25 20:20] LABS: Glucose,Whole Blood 168 mg/dL (70-110)
[2021-09-25] MEDS: NICOTINE 21MG/24HR PATCH TRANSDERM SCH (23:07)
[2021-09-26] MEDS: FUROSEMIDE 10 MG/ML 4 ML VIAL IV SCH ×2 (01:23→08:38)
[2021-09-26 06:12] LABS: Glucose,Whole Blood 141 mg/dL (70-110)
--- NOTE | 2021-09-26 06:12 | P.PN ---
Subjective Progress Note Date: 09/26/21 The patient was seen for symptomatic bh. His pvr were between 100-250 ml I have started him on flomax. We will see how it helps him Objective - Vital Signs Vital signs: Vital Signs Temp 97.4 F L 09/26/21 04:15 Pulse 94 09/26/21 04:15 Resp 16 09/26/21 04:15 BP 115/78 09/26/21 04:15 Pulse Ox 100 09/26/21 04:15 FiO2 Intake & Output 09/25/21 09/25/21 09/26/21 06:59 18:59 06:59 Intake Total 440 240 Output Total 2500 450 1590 Balance -2059 -210 -1590 Weight 91.2 kg 90.8 kg 88.7 kg Intake: Oral 440 240 Output: Urine 2500 450 1590 Other: Voiding Method Toilet # Voids 2 1 - Labs CBC & Chem 7: 09/24/21 13:57 09/24/21 13:57 Labs: Abnormal Lab Results - Last 24 Hours (Table) 09/25/21 09/25/21 09/25/21 Range/Units 11:37 16:14 20:18 POC Glucose (mg/dL) 346 H 140 H 168 H (70-110) mg/dL
[2021-09-26] MEDS: carvediloL 6.25 MG TAB PO SCH ×2 (06:20→17:27)
[2021-09-26] MEDS: INSULIN ASPART (NovoLOG) 100 UNIT/ML VIAL SQ SCH ×4 (06:20→21:33)
[2021-09-26] MEDS: IPRATROPIUM-ALBUTEROL 3 ML NEB INHALATION SCH ×4 (07:19→20:14)
[2021-09-26] MEDS: NICOTINE 21MG/24HR PATCH TRANSDERM SCH (08:34)
[2021-09-26] MEDS: ASPIRIN 81 MG PO SCH (08:38)
[2021-09-26] MEDS: APIXABAN 5 MG TAB PO SCH ×2 (08:38→19:51)
[2021-09-26] MEDS: methylPREDNISolone SOD SUCCI 40 MG/ML 1 ML VIAL IV SCH ×2 (08:38→19:51)
[2021-09-26 08:46] LABS: African American GFR (CKD) >90 (>60 ml/min/1.73 sqM); Anion Gap 5 mmol/L; Blood Urea Nitrogen 34 mg/dL (9-20); Calcium 8.5 mg/dL (8.4-10.2); Carbon Dioxide 35 mmol/L (22-30); Chloride 100 mmol/L (98-107); Glucose 124 mg/dL (74-99); Non-African American GFR(CKD) >90 (>60 ml/min/1.73 sqM); Potassium 3.8 mmol/L (3.5-5.1); Sodium 140 mmol/L (137-145)
[2021-09-26 11:37] LABS: Glucose,Whole Blood 174 mg/dL (70-110)
--- NOTE | 2021-09-26 12:27 | P.PN ---
Subjective Progress Note Date: 09/26/21 HISTORY OF PRESENT ILLNESS: This is a 60-year-old male with a past medical history significant for with paroxysmal atrial fibrillation, permanent pacemaker insertion, congestive heart failure, hypertension, hyperlipidemia, and nicotine dependence. Patient follows with a software licensing analyst out of [place] [place]. We have been asked to see the patient in consultation for congestive heart failure. Patient examined at the bedside. The patient presented to the hospital for chief complaint of increasing shortness of breath. He states he has been feeling short of breath for the past 6 weeks but his shortness of breath got worse over the past couple days which prompted him to come to the emergency room. He denies any chest pain or pressure. Denies dizziness or lightheadedness. The patient was started on IV Lasix in the emergency room. * EKG reveals ventricular paced rhythm * Chest xray findings suggest early interstitial edema. Cardiomegaly * Laboratory data: WBC 12.6. Hemoglobin 13.7. Platelet count 240. Sodium 134. Potassium 4.6. BUN 28. Creatinine 0.71. AST 163. ALT 150. ProBNP 11,800. * Current home cardiac medications include lisinopril 2.5 mg daily, Lasix 40 mg twice a day, aspirin 81 mg daily, carvedilol 6.25 mg twice a day, Lipitor 80 mg at night, and Eliquis 5 mg twice a day 09/26/2021 Patient examined this morning at the bedside. Patient denies chest pain or pressure. He states his shortness of breath has improved. He is laying flat in bed and appears comfortable. Vital signs are stable. Patient remains on IV Lasix. BUN 34. Creatinine 0.70. Echocardiogram obtained reveals ejection fraction 20%, global hypokinesis, mild LVH, severe mitral regurgitation PHYSICAL EXAM: VITAL SIGNS: Reviewed. GENERAL: Well-developed in no acute distress. HEENT: Head is normocephalic. Pupils are equal, round. Sclerae anicteric. Mucous membranes of the mouth are moist. Neck supple. No JVD or thyromegaly LUNGS: Respirations even and unlabored. Lungs diminished. HEART: Regular rate and rhythm. S1 and S2 heard. ABDOMEN: Soft. Nondistended. Nontender. EXTREMITIES: Normal range of motion. No clubbing or cyanosis. Peripheral pulses intact. 1+ lower extremity edema NEUROLOGIC: Awake and alert. Oriented x 3. ASSESSMENT: Shortness of breath Acute on chronic heart failure with reduced EF Possible COPD exacerbation Paroxysmal atrial fibrillation History of permanent pacemaker insertion Coronary artery disease Hypertension Hyperlipidemia Nicotine dependence Elevated LFTs PLAN: Continue current cardiac medications Discontinue IV Lasix Begin oral Lasix 80 mg in the morning and 40 mg in the afternoon Daily weights Accurate I&O Monitor kidney function Further recommendations pending patient's course Nurse practitioner note has been reviewed by physician. Signing provider agrees with the documented findings, assessment, and plan of care. Objective - Vital Signs Vital signs: Vital Signs Temp 97.8 F 09/26/21 08:34 Pulse 90 09/26/21 11:10 Resp 18 09/26/21 11:10 BP 106/75 09/26/21 11:10 Pulse Ox 95 09/26/21 11:10 FiO2 Intake & Output 09/25/21 09/26/21 09/26/21 18:59 06:59 18:59 Intake Total 240 240 120 Output Total 450 1989 Balance -210 -1750 120 Weight 90.8 kg 88.7 kg Intake: Oral 240 240 120 Output: Urine 450 1989 Other: Voiding Method Toilet Toilet Urinal # Voids 2 1 - Labs CBC & Chem 7: 09/24/21 13:57 09/26/21 07:43 Labs: Abnormal Lab Results - Last 24 Hours (Table) 09/25/21 09/25/21 09/26/21 Range/Units 16:14 20:18 06:10 Carbon Dioxide (22-30) mmol/L BUN (9-20) mg/dL Glucose (74-99) mg/dL POC Glucose (mg/dL) 140 H 168 H 141 H (70-110) mg/dL 09/26/21 09/26/21 Range/Units 07:43 11:35 Carbon Dioxide 35 H (22-30) mmol/L BUN 34 H (9-20) mg/dL Glucose 124 H (74-99) mg/dL POC Glucose (mg/dL) 174 H (70-110) mg/dL
--- NOTE | 2021-09-26 14:15 | P.CNNES ---
History of Present Illness Consult date: 09/26/21 Requesting physician: Alex Razo Reason for Consult: new intermittent confusion History of Present Illness: This is a 60-year-old gentleman with history of congestive heart failure, permanent pacemaker, hypertension, hyperlipidemia who presented to the emergency department for short of breath. Neurology is consulted for intermittent confusion. Per the nurse, it seems his daughter notified the nurse recently at home he has intermittent episodes of confusion. During this hospital visit, noticed noticed he had intermittent subtle confusions. No jerking of any extremities, foaming around the mouth. Patient stated at home and had a episode of syncopal episode while sitting down. He felt he was leaning forward and unsure how long episode was. Denies tongue bite or bowel incontinence. Not sure about urinary incontinence. He has been having worsening of short of breath recently. Denies history of seizures or stroke. Denies of headache, fever recently. Denies neck pain. He does smoke 1.5 PPD. Denies illcit drug use. SOME OF THE WORK-UP DURING THIS HOSPITAL VISIT CONSISTED OF: Patient has been afebrile. Initial wbc is 12.6K. AST 163, LT 150. Sugar 140 and got as high as 300's. 2D echo: severe cardiomyopathy with left fraction 20% with global hypokines, Dilated left atrial. Severe mitral regurgitation with predominately posterior leaflet tethering and posteriorly directed jet. Review of Systems Review of system: The 12 point system was reviewed and apparent positive and negative per HPI. Past Medical History Past Medical History: Atrial Fibrillation, Heart Failure, Hypertension History of Any Multi-Drug Resistant Organisms: None Reported Past Surgical History: Appendectomy, Heart Catheterization With Stent, Orthopedic Surgery, Pacemaker Additional Past Surgical History / Comment(s): shoulder surgery, facial reconst ruction of nose Date of Last Stent Placement:: 2012 Type of Cardiac Device: Permanent Pacemaker Device Placement Date:: 2012 Past Psychological History: No Psychological Hx Reported Smoking Status: Current every day smoker Past Alcohol Use History: None Reported Past Drug Use History: None Reported Medications and Allergies Home Medications Medication Instructions Recorded Confirmed Type Apixaban [Eliquis] 5 mg PO BID 09/24/21 09/24/21 History Aspirin EC [Ecotrin Low Dose] 81 mg PO DAILY 09/24/21 09/24/21 History Atorvastatin [Lipitor] 80 mg PO HS 09/24/21 09/24/21 History Furosemide [Lasix] 40 mg PO BID@0900,1600 09/24/21 09/24/21 History Nitroglycerin Sl Tabs [Nitrostat] 0.4 mg SL Q5M PRN 09/24/21 09/24/21 History carvediloL [Coreg] 6.25 mg PO BID 09/24/21 09/24/21 History lisinopriL 2.5 mg PO DAILY 09/24/21 09/24/21 History Allergies Allergy/AdvReac Type Severity Reaction Status Date / Time isosorbide [From Imdur] Allergy Anaphylaxis Verified 09/24/21 15:21 quinapril [From Accupril] Allergy Swelling Verified 09/24/21 15:21 hands, feet and joints Sulfa (Sulfonamide Allergy Rash/Hives Verified 09/24/21 15:21 Antibiotics) Physical Examination - Vital Signs Vital Signs: Vital Signs Temp Pulse Pulse Resp BP Pulse Ox 09/26/21 11:10 90 18 106/75 95 09/26/21 11:08 88 09/26/21 10:56 80 09/26/21 08:34 97.8 F 82 20 110/74 93 L 09/26/21 07:29 96 09/26/21 07:20 92 09/26/21 04:15 97.4 F L 94 16 115/78 100 09/26/21 01:41 97.5 F L 81 17 99/64 96 09/25/21 20:16 93 09/25/21 20:06 91 09/25/21 20:00 97.8 F 82 18 95/58 92 L 09/25/21 16:13 92 09/25/21 16:07 88 L 09/25/21 16:04 88 09/25/21 15:35 97.6 F 91 20 93/61 91 L Intake and Output 09/25/21 09/26/21 09/26/21 22:59 06:59 14:59 Intake Total 120 240 240 Output Total 850 1590 425 Balance -730 -1350 -185 Intake: Oral 120 240 240 Output: Urine 850 1590 425 Other: Voiding Method Toilet Urinal # Voids 2 1 Weight 88.7 kg GENERAL: The patient is lying in bed and is not in acute distress. HENT: Supple neck. CHEST: The heart rate is regular rate rhythm. No murmurs to auscultation. LUNG: Clear to auscultation bilaterally no wheezing noted throughout. Not labored breathing. ABDOMEN/GI: Bowel sounds present in all 4 quadrants. No tenderness to palpation throughout. NEUROLOGICAL: Higher mental function: The patient is awake, alert, oriented to self, place and time. Patient is following simple commands. Is able to identify objects correctly (pen, watch, glasses). Correctly stated he is currently in [place]. No aphasia and no neglect. Cranial nerves: The pupils are round, equal and reactive to light and accom modation. Visual drummond are full to confrontation throughout. Extraocular movement is intact no nystagmus is noted. Facial sensation is normal to touch throughout. The facial strength is normal throughout. Hearing is normal bilaterally to hand rub. Tongue is midline and moved [id number] without any difficulty. No dysarthria is noted. Shoulder shrug is normal bilaterally. Motor: The strength is 5 over 5 throughout. Normal tone and bulk. Has moderate amount edema in lowers 2+. Cerebellum: Normal finger to nose bilaterally. Sensation: Sensation is normal to touch throughout. Reflexes (right/left): 1+ throughout. Plantars are downgoing bilaterally. Results - Laboratory Findings CBC and BMP: 09/24/21 13:57 09/26/21 07:43 Abnormal Lab Findings: Abnormal Labs 09/24/21 09/24/21 09/24/21 13:57 13:57 13:57 WBC 12.6 H Neutrophils # 9.8 H Monocytes # 1.1 H PT 15.3 H INR 1.5 H Sodium 134 L Carbon Dioxide BUN 28 H Glucose 103 H POC Glucose (mg/dL) Total Bilirubin 3.5 H AST 163 H ALT 150 H Urine Blood Hyaline Casts Urine Mucus 09/24/21 09/24/21 09/25/21 18:46 20:36 06:05 WBC Neutrophils # Monocytes # PT INR Sodium Carbon Dioxide BUN Glucose POC Glucose (mg/dL) 143 H 120 H Total Bilirubin AST ALT Urine Blood Small H Hyaline Casts 5 H Urine Mucus Rare H 09/25/21 09/25/21 09/25/21 11:37 16:14 20:18 WBC Neutrophils # Monocytes # PT INR Sodium Carbon Dioxide BUN Glucose POC Glucose (mg/dL) 346 H 140 H 168 H Total Bilirubin AST ALT Urine Blood Hyaline Casts Urine Mucus 0709/26/21 09/26/21 06:10 07:43 11:35 WBC Neutrophils # Monocytes # PT INR Sodium Carbon Dioxide 35 H BUN 34 H Glucose 124 H POC Glucose (mg/dL) 141 H 174 H Total Bilirubin AST ALT Urine Blood Hyaline Casts Urine Mucus Assessment and Plan Assessment: Transient episode of confusion. Seems due to hepatic encephalopathy, component of hypoxic encephalopathy (PO2 was as low as 88%) due shortness of breath due to acute on chronic heart failure. Currently is oriented X4 and no focal deficits Delerium due to above Syncopal episode (reported one episode at home): Possible due to heart failure Acute on chronic heart failure with reduced ejection fraction of about 20% Elevated liver function test Pacemaker Paroxysmal atrial fibrillation on eliquis Dilated left atrium Severe mitral regurgitation Hypertension Hyperlipidemia Nicotine use Plan: I ordered CT of the head, I ordered a routine EEG. I'll not start the patient on antiepileptic drugs unless there is epileptiform discharges or seizure on the EEG I ordered ammonia level. If ammonia is elevated will defer the management to the primary team Ordered TSH, vitamin B12 folate Cardiology is on board Pulmonary team is on board We'll defer the rest of the medical management to primary team. The plan is discussed with patient and his nurse. Thank you for the consultation. Juvencio Figueredo M.D. Neuro-Hospitalist Time with Patient: Greater than 30
--- NOTE | 2021-09-26 15:27 | P.PN ---
Subjective Progress Note Date: 09/26/21 Principal diagnosis: Acute on chronic systolic heart failure Right-sided pleural effusion related to above Progressive shortness of breath and lower extremity edema related to above COPD exacerbation Elevated liver enzyme related to passive hepatic congestion related to heart failure Lower extremity +3 edema related to heart failure/biventricular failure Severe mitral regurgitation Paroxysmal atrial fibrillation on diet control related ocular Mild hyponatremia 09/26/2021, patient seen eval examined during the rounds labs reviewed medications reviewed, patient remains on supplemental oxygen with thick green nasal cannula saturation are 95% hemodynamic status stable, neurology start following due to intermittent confusion which appears to be metabolic and due to multiple factors including chronic hypoxic respiratory failure chronic congestive heart failure and elevated liver enzymes Patient is a 60-year-old male with extensive history of smoking and nicotine use patient has prior medical history of hypertension and hypertensive cardiovascular disease patient presented into the hospital with progressive shortness of breath intermittent dry nonproductive cough and lower extremity edema. Patient does have a prior history of coronary artery disease status post pacemaker insertion, proximal atrial fibrillation, dyslipidemia, extensive history of smoking and nicotine use. Patient underwent computed tomography scan of the chest cardiomegaly is noted along with a right-sided pleural effusion CHF-like changes along with interstitial edema, ultrasound of the liver and gallbladder and abdomen no acute processes identified, echocardiogram revealed severe cardiomyopathy with left ventricular ejection fraction 20% with global hypokinesia along with severe MR has been noted. Labs reviewed white cell count is 12,600, PT/INR 15/1.5, sodium 134, urine creatinine is 28/0.7, total bilirubin is 3.5, AST ALT 150/163. Currently patient is being treated with bronchodilators 4 times a day along with continuation of direct oral anticoagulation, continuation of home medicines patient is being given Lasix 40 mg every 12 also on IV Solu-Medrol 40 mg every 8 hourly Objective - Vital Signs Vital signs: Vital Signs Temp 97.8 F 09/26/21 08:34 Pulse 90 09/26/21 14:04 Resp 18 09/26/21 11:10 BP 106/75 09/26/21 11:10 Pulse Ox 95 09/26/21 11:10 FiO2 Intake & Output 09/25/21 09/26/21 09/26/21 18:59 06:59 18:59 Intake Total 240 240 240 Output Total 450 1990 218 Balance 210 -4111 -704 Weight 90.8 kg 88.7 kg Intake: Oral 240 240 240 Output: Urine 450 1990 425 Other: Voiding Method Toilet Toilet Urinal # Voids 2 1 - Exam - Constitutional General appearance: average body habitus, cooperative, disheveled - EENT Eyes: EOMI, PERRLA Ears: bilateral: normal - Neck Carotids: bilateral: upstroke normal Thyroid: bilateral: normal size - Respiratory Respiratory: bilateral: wheezing - Cardiovascular Rhythm: regular Heart sounds: normal: S1, S2 - Gastrointestinal General gastrointestinal: normal bowel sounds, soft - Integumentary + Edema of the lower extremity Integumentary: normal turgor - Neurologic Neurologic: CNII-XII intact - Musculoskeletal Musculoskeletal: gait normal, generalized weakness, strength equal bilaterally - Psychiatric Psychiatric: A&O x's 1-3, appropriate affect, intact judgment & insight - Labs CBC & Chem 7: 09/24/21 13:57 09/26/21 07:43 Labs: Abnormal Lab Results - Last 24 Hours (Table) 09/25/21 09/25/21 09/26/21 Range/Units 16:14 20:18 06:10 Carbon Dioxide (22-30) mmol/L BUN (9-20) mg/dL Glucose (74-99) mg/dL POC Glucose (mg/dL) 140 H 168 H 141 H (70-110) mg/dL 09/26/21 09/26/21 Range/Units 07:43 11:35 Carbon Dioxide 35 H (22-30) mmol/L BUN 34 H (9-20) mg/dL Glucose 124 H (74-99) mg/dL POC Glucose (mg/dL) 174 H (70-110) mg/dL Assessment and Plan Assessment: Altered mental status/intermittent confusion multifactorial and metabolic Acute on chronic systolic heart failure Right-sided pleural effusion related to above Progressive shortness of breath and lower extremity edema related to above COPD exacerbation Elevated liver enzyme related to passive hepatic congestion related to heart failure Lower extremity +3 edema related to heart failure/biventricular failure Severe mitral regurgitation Paroxysmal atrial fibrillation on diet control related ocular Mild hyponatremia Plan: Optimize therapy for heart failure including diuretics and afterload reducing agent Continue bronchodilators IV steroids, can start tapering it down further Supplemental oxygen Deep breathing exercises incentive spirometry Smoking cessation counseling and advice Further plan of care as per clinical response of the patient Time with Patient: Greater than 30
--- NOTE | 2021-09-26 15:28 | CT ---
EXAMINATION TYPE: CT brain wo con CT DLP: 1074.6 mGycm, Automated exposure control for dose reduction was used. DATE OF EXAM: 09/26/2021 3:20 PM COMPARISON: None CLINICAL INDICATION:Male, 60 years old with history of altered mental status. TECHNIQUE: Brain: Multiple axial CT images of the brain were obtained without IV contrast. FINDINGS: Brain: Extra-axial spaces: No abnormal extra-axial fluid collections. Ventricular system: Within normal limits Cerebral parenchyma: Encephalomalacia the right frontal lobe in the right MCA territory. No acute int raparenchymal hemorrhage or mass effect. The remainder of the dent-white junctions are well differen tiated. Cerebellum: Unremarkable. Mass effect: No evidence of midline shift. Intracranial vasculature: Atherosclerotic calcifications of the intracranial vessels. Soft tissues: Normal. Calvarium/osseous structures: No depressed skull fracture. Paranasal sinuses and mastoid air cells: Mild scattered paranasal sinus disease. Visualized orbits: Orbital contents are intact. IMPRESSION: 1. No acute intracranial process. 2. 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
[2021-09-26 16:43] LABS: Glucose,Whole Blood 124 mg/dL (70-110)
[2021-09-26] MEDS: TAMSULOSIN 0.4 MG CAP.ER.24H PO SCH (17:27)
--- NOTE | 2021-09-26 18:10 | EEG ---
ELECTROENCEPHALOGRAM REPORT DATE OF SERVICE: 09/26/2021. CLINICAL HISTORY: This is a 60-year-old gentleman with transient episodes of confusion. The video EEG is obtained to evaluate for seizure epileptiform activity. RELEVANT MEDICATION: The patient is not on any antiepileptic drugs. EEG TYPE: A routine 21-channel EEG is performed with video using the 10/20 electrode placement system. DESCRIPTION: Wakefulness is obtained. During awake state, the background consists of low to moderate voltage of 7 to 8 hertz that is somewhat poorly modulated, poorly sustained. There is no physiological stage 2 sleep seen. There is no focal slowing. Interictal and ictal is none. ACTIVATION PROCEDURE: Photic stimulation did not evoke a posterior driving response. There is no abnormality during the photic stimulation. Hyperventilation is not performed. CLINICAL INTERPRETATION: This is an abnormal routine EEG. The background slowing is suggestive of mild encephalopathy. Otherwise there is no focal slowing, epileptiform discharges or seizure on the EEG. Clinical correlation is recommended. CHLOE / DEEP: [id number] / MTDSamm
[2021-09-26] MEDS: ATORVASTATIN 80 MG TAB PO SCH (19:51)
[2021-09-26 20:36] LABS: Glucose,Whole Blood 198 mg/dL (70-110)
[2021-09-27] MEDS: INSULIN ASPART (NovoLOG) 100 UNIT/ML VIAL SQ SCH ×4 (06:19→21:09)
[2021-09-27 06:22] LABS: Glucose,Whole Blood 122 mg/dL (70-110)
[2021-09-27] MEDS: carvediloL 6.25 MG TAB PO SCH ×2 (06:23→16:57)
[2021-09-27 08:29] LABS: Basophils % (A) 0 %; Eosinophils % (A) 0 %; HCT 43.8 % (39.0-53.0); HGB 13.3 gm/dL (13.0-17.5); Hypochromasia Moderate; Lymphocytes # (A) 0.6 k/uL (1.0-4.8); Lymphocytes % (A) 3 %; MCH 27.8 pg (25.0-35.0); MCHC 30.4 g/dL (31.0-37.0); MCV 91.5 fL (80.0-100.0); Mean Platelet Volume 8.9; Monocytes # (A) 0.8 k/uL (0-1.0); Monocytes % (A) 5 %; Neutrophils # (A) 16.7 k/uL (1.3-7.7); Neutrophils % (A) 92 %; Platelet Count 205 k/uL (150-450); RBC 4.79 m/uL (4.30-5.90); RDW 15.3 % (11.5-15.5); WBC 18.3 k/uL (3.8-10.6)
[2021-09-27] MEDS: IPRATROPIUM-ALBUTEROL 3 ML NEB INHALATION SCH ×4 (08:41→20:53)
[2021-09-27 08:47] LABS: ALT 114 U/L (4-49); AST 59 U/L (17-59); African American GFR (CKD) >90 (>60 ml/min/1.73 sqM); Albumin 3.3 g/dL (3.5-5.0); Alkaline Phosphatase 129 U/L (38-126); Anion Gap 5 mmol/L; Blood Urea Nitrogen 30 mg/dL (9-20); Calcium 8.2 mg/dL (8.4-10.2); Carbon Dioxide 36 mmol/L (22-30); Chloride 96 mmol/L (98-107); Glucose 175 mg/dL (74-99); Non-African American GFR(CKD) >90 (>60 ml/min/1.73 sqM); Sodium 137 mmol/L (137-145); Total Bilirubin 1.1 mg/dL (0.2-1.3)
--- NOTE | 2021-09-27 09:09 | US ---
EXAMINATION TYPE: US carotid duplex BILAT DATE OF EXAM: 09/27/2021 COMPARISON: NONE CLINICAL HISTORY: stroke. Stroke EXAM MEASUREMENTS: RIGHT: Peak Systolic Velocity (PSV) cm/sec ----- Right CCA: 53.1 ----- Right ICA: 160.1 ----- Right ECA: 112.3 ICA/CCA ratio: 3.0 RIGHT: End Diastole cm/sec ----- Right CCA: 17.4 ----- Right ICA: 39.3 ----- Right ECA: 26.3 LEFT: Peak Systolic Velocity (PSV) cm/sec ----- Left CCA: 63.6 ----- Left ICA: 90.0 ----- Left ECA: 117.7 ICA/CCA ratio: 1.4 LEFT: End Diastole cm/sec ----- Left CCA: 24.3 ----- Left ICA: 13.1 ----- Left ECA: 20.8 VERTEBRALS (direction of flow): Right Vertebral: Antegrade Left Vertebral: Antegrade Rhythm: Normal Heterogeneous plaque bilaterally with elevated velocities right ICA Grayscale, color Doppler, spectral Doppler imaging performed of the carotid arteries. Elevated peak s ystolic velocity in the proximal internal carotid artery on the right is noted, there is elevation of the ICA to CCA ratio, elevated end-diastolic velocity. IMPRESSION: Hemodynamic significant stenosis of the proximal internal carotid artery on the right co rresponding to approximately 50-69% diameter reduction by Doppler criteria, an indirect measurement o f carotid stenosis Criteria for Assigning % of Stenosis / Diameter reduction (Estimation based on the indirect measurements of the internal carotid artery velocities (ICA PSV). 1. Normal (no stenosis)=ICA PSV < 125 cm/s: ratio < 2.0: ICA EDV<40 cm/s. 2. Less than 50% stenosis=ICA PSV < 125 cm/s: ratio < 2.0: ICA EDV<40 cm/s. 3. 50 to 69% stenosis=ICA PSV of 125 to 230 cm/s: ratio 2.0 ? 4.0: ICA EDV 40-100 cm/s. 4. Greater than 70% stenosis to near occlusion= ICA PSV > 230 cm/s: ratio > 4.0: ICA EDV > 100 cm/s. 5. Near occlusion= ICA PSV velocities may be low or undetectable: variable ratio and ICA EDV. 6. Total occlusion=unable to detect flow.
--- NOTE | 2021-09-27 10:14 | P.PN ---
Subjective Progress Note Date: 09/27/21 The patient is seen at bedside and per the nurse no further confusion episodes. Patient stated he is doing well. Objective - Vital Signs Vital signs: Vital Signs Temp 97.4 F L 09/27/21 04:25 Pulse 86 09/27/21 08:55 Resp 12 09/27/21 04:25 BP 106/70 09/27/21 06:22 Pulse Ox 98 09/27/21 08:41 FiO2 Intake & Output 09/26/21 09/27/21 09/27/21 18:59 06:59 18:59 Intake Total 360 118 Output Total 425 Balance -65 118 Intake: Oral 360 118 Output: Urine 425 Other: Voiding Method Toilet Toilet Urinal Urinal - Exam GENERAL: The patient is lying in bed and is not in acute distress. HENT: Supple neck. CHEST: The heart rate is regular rate rhythm. No murmurs to auscultation. LUNG: Clear to auscultation bilaterally no wheezing noted throughout. Not labored breathing. ABDOMEN/GI: Bowel sounds present in all 4 quadrants. No tenderness to palpation throughout. NEUROLOGICAL: Higher mental function: The patient is awake, alert, oriented to self, place and time. Patient is following simple commands. Is able to identify objects correctly (pen, watch, glasses). Correctly stated he is currently in [place]. No aphasia and no neglect. Cranial nerves: The pupils are round, equal and reactive to light and accommodation. Visual drummond are full to confrontation throughout. Extraocular movement is intact no nystagmus is noted. Facial sensation is normal to touch throughout. The facial strength is normal throughout. Hearing is normal bilaterally to hand rub. Tongue is midline and moved [id number] without any difficulty. No dysarthria is noted. Shoulder shrug is normal bilaterally. Motor: Gait is normal. The strength is 5 over 5 throughout. Normal tone and bulk. Has moderate amount edema in lowers 2+. Cerebellum: Normal finger to nose bilaterally. Sensation: Sensation is normal to touch throughout. Reflexes (right/left): 1+ throughout. Plantars are downgoing bilaterally. SOME OF THE WORK-UP DURING THIS HOSPITAL VISIT CONSISTED OF: Patient has been afebrile. Initial wbc is 12.6K. AST 163, LT 150. Repeated is AST of 59 and ALT of 114. Ammonia level is less than 9 Folate is 12.3 Vitamin B12 is 830 TSH is 0.541 2D echo: severe cardiomyopathy with left fraction 20% with global hypokines, Dilated left atrial. Severe mitral regurgitation with predominately posterior leaflet tethering and posteriorly directed jet. CT of the head is reported as no acute intracranial process. 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 I personally reviewed the CT of the head and this does not look acute. I do not have any previous images to compared to. Routine EEG is abnormal. The background slowing is suggestive of mild encephalopathy. Otherwise there is no focal slowing, epileptiform discharges or seizure on the EEG. - Labs CBC & Chem 7: 09/27/21 07:53 09/27/21 07:53 Labs: Abnormal Lab Results - Last 24 Hours (Table) 09/26/21 09/26/21 09/26/21 Range/Units 11:35 16:42 20:21 WBC (3.8-10.6) k/uL MCHC (31.0-37.0) g/dL Neutrophils # (1.3-7.7) k/uL Lymphocytes # (1.0-4.8) k/uL Chloride (98-107) mmol/L Carbon Dioxide (22-30) mmol/L BUN (9-20) mg/dL Glucose (74-99) mg/dL POC Glucose (mg/dL) 174 H 124 H 198 H (70-110) mg/dL Calcium (8.4-10.2) mg/dL ALT (4-49) U/L Alkaline Phosphatase (38-126) U/L Total Protein (6.3-8.2) g/dL Albumin (3.5-5.0) g/dL 09/27/21 09/27/21 09/27/21 Range/Units 06:14 07:53 07:53 WBC 18.3 H (3.8-10.6) k/uL MCHC 30.4 L (31.0-37.0) g/dL Neutrophils # 16.7 H (1.3-7.7) k/uL Lymphocytes # 0.6 L (1.0-4.8) k/uL Chloride 96 L (98-107) mmol/L Carbon Dioxide 36 H (22-30) mmol/L BUN 30 H (9-20) mg/dL Glucose 175 H (74-99) mg/dL POC Glucose (mg/dL) 122 H (70-110) mg/dL Calcium 8.2 L (8.4-10.2) mg/dL ALT 114 H (4-49) U/L Alkaline Phosphatase 129 H (38-126) U/L Total Protein 6.0 L (6.3-8.2) g/dL Albumin 3.3 L (3.5-5.0) g/dL Assessment and Plan Assessment: Transient episode of confusion. Seems due to hepatic encephalopathy, component of hypoxic encephalopathy (PO2 was as low as 88%) due shortness of breath due to acute on chronic heart failure. Currently is oriented X4 and no focal deficits Delerium due to above---resolved. 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 Patient is not aware he had stroke in past. Appears embolic especially with history of atrial fibrillation. Syncopal episode (reported one episode at home): Possible due to heart failure Acute on chronic heart failure with reduced ejection fraction of about 20% Elevated liver function test--trending down Pacemaker Paroxysmal atrial fibrillation on eliquis Dilated left atrium Severe mitral regurgitation Hypertension Hyperlipidemia Nicotine use Plan: I ordered carotid duplex. Currently he is on his home medication of eliquis 5mg bid. He is also on ASA 81mg daily and Lipitor 80mg qhs and those are sufficient for secondary stroke prophylaxis. Cardiology is on board Pulmonary team is on board Patient was counseled on tobacco cessation. We'll defer the rest of the medical management to primary team. Patient was notified that he is to follow up with a neurologist as an outpatient within 1-2 weeks. The plan is discussed with patient and his nurse. UPDATE: Carotid duplex is reported as hemodynamic significant stenosis of the proximal internal carotid artery on the right corresponding to approximately 50-69 diamet er reduction by Doppler criteria, and in direct measurement of carotid stenosis. Therefore I consulted vascular surgery team and I also ordered CT angiography of the neck I also ordered the lipid panel Juvencio Figueredo M.D. Neuro-Hospitalist Time with Patient: Less than 30
[2021-09-27] MEDS: FUROSEMIDE 80 MG TAB PO SCH (10:18)
[2021-09-27] MEDS: ASPIRIN 81 MG PO SCH (10:18)
[2021-09-27] MEDS: methylPREDNISolone SOD SUCCI 40 MG/ML 1 ML VIAL IV SCH ×2 (10:19→21:13)
[2021-09-27] MEDS: NICOTINE 21MG/24HR PATCH TRANSDERM SCH (10:19)
[2021-09-27] MEDS: APIXABAN 5 MG TAB PO SCH ×2 (10:19→21:13)
--- NOTE | 2021-09-27 11:25 | P.PN ---
Subjective Progress Note Date: 09/27/21 HISTORY OF PRESENT ILLNESS: This is a 60-year-old male with a past medical history significant for with paroxysmal atrial fibrillation, permanent pacemaker insertion, congestive heart failure, hypertension, hyperlipidemia, and nicotine dependence. Patient follows with a city letter carrier out of [place]. We have been asked to see the patient in consultation for congestive heart failure. Patient examined at the bedside. The patient presented to the hospital for chief complaint of increasing shortness of breath. He states he has been feeling short of breath for the past 6 weeks but his shortness of breath got worse over the past couple days which prompted him to come to the emergency room. He denies any chest pain or pressure. Denies dizziness or lightheadedness. The patient was started on IV Lasix in the emergency room. * EKG reveals ventricular paced rhythm * Chest xray findings suggest early interstitial edema. Cardiomegaly * Laboratory data: WBC 12.6. Hemoglobin 13.7. Platelet count 240. Sodium 134. Potassium 4.6. BUN 28. Creatinine 0.71. AST 163. ALT 150. ProBNP 11,800. * Current home cardiac medications include lisinopril 2.5 mg daily, Lasix 40 mg twice a day, aspirin 81 mg daily, carvedilol 6.25 mg twice a day, Lipitor 80 mg at night, and Eliquis 5 mg twice a day 09/26/2021 Patient examined this morning at the bedside. Patient denies chest pain or pressure. He states his shortness of breath has improved. He is laying flat in bed and appears comfortable. Vital signs are stable. Patient remains on IV Lasix. BUN 34. Creatinine 0.70. Echocardiogram obtained reveals ejection fraction 20%, global hypokinesis, mild LVH, severe mitral regurgitation 09/27/2021 Patient examined this morning. He is sitting up on the side of the bed. Patient denies chest pain or pressure. Patient denies SOB. He has been transitioned to oral lasix. Vital signs are stable. PHYSICAL EXAM: VITAL SIGNS: Reviewed. GENERAL: Well-developed in no acute distress. HEENT: Head is normocephalic. Pupils are equal, round. Sclerae anicteric. Mucous membranes of the mouth are moist. Neck supple. No JVD or thyromegaly LUNGS: Respirations even and unlabored. Lungs diminished. HEART: Regular rate and rhythm. S1 and S2 heard. ABDOMEN: Soft. Nondistended. Nontender. EXTREMITIES: Normal range of motion. No clubbing or cyanosis. Peripheral pulses intact. 1+ lower extremity edema NEUROLOGIC: Awake and alert. Oriented x 3. ASSESSMENT: Shortness of breath Acute on chronic heart failure with reduced EF Possible COPD exacerbation Paroxysmal atrial fibrillation History of permanent pacemaker/AICD insertion Coronary artery disease Ischemic cardiomyopathy Hypertension Hyperlipidemia Nicotine dependence Elevated LFTs PLAN: Continue current cardiac medications Patient is currently stable from a cardiac standpoint Patient to follow up outpatient with his primary city letter carrier Further recommendations pending patient's course Nurse practitioner note has been reviewed by physician. Signing provider agrees with the documented findings, assessment, and plan of care. Objective - Vital Signs Vital signs: Vital Signs Temp 97.9 F 09/27/21 10:09 Pulse 93 09/27/21 10:09 Resp 22 09/27/21 10:09 BP 91/54 09/27/21 10:09 Pulse Ox 98 09/27/21 10:09 FiO2 Intake & Output 09/26/21 09/27/21 09/27/21 18:59 06:59 18:59 Intake Total 360 118 Output Total 425 Balance -65 118 Intake: Oral 360 118 Output: Urine 425 Other: Voiding Method Toilet Toilet Urinal Urinal - Labs CBC & Chem 7: 09/27/21 07:53 09/27/21 07:53 Labs: Abnormal Lab Results - Last 24 Hours (Table) 09/26/21 09/26/21 09/26/21 Range/Units 11:35 16:42 20:21 WBC (3.8-10.6) k/uL MCHC (31.0-37.0) g/dL Neutrophils # (1.3-7.7) k/uL Lymphocytes # (1.0-4.8) k/uL Chloride (98-107) mmol/L Carbon Dioxide (22-30) mmol/L BUN (9-20) mg/dL Glucose (74-99) mg/dL POC Glucose (mg/dL) 174 H 124 H 198 H (70-110) mg/dL Calcium (8.4-10.2) mg/dL ALT (4-49) U/L Alkaline Phosphatase (38-126) U/L Total Protein (6.3-8.2) g/dL Albumin (3.5-5.0) g/dL 09/27/21 09/27/21 09/27/21 Range/Units 06:14 07:53 07:53 WBC 18.3 H (3.8-10.6) k/uL MCHC 30.4 L (31.0-37.0) g/dL Neutrophils # 16.7 H (1.3-7.7) k/uL Lymphocytes # 0.6 L (1.0-4.8) k/uL Chloride 96 L (98-107) mmol/L Carbon Dioxide 36 H (22-30) mmol/L BUN 30 H (9-20) mg/dL Glucose 175 H (74-99) mg/dL POC Glucose (mg/dL) 122 H (70-110) mg/dL Calcium 8.2 L (8.4-10.2) mg/dL ALT 114 H (4-49) U/L Alkaline Phosphatase 129 H (38-126) U/L Total Protein 6.0 L (6.3-8.2) g/dL Albumin 3.3 L (3.5-5.0) g/dL
[2021-09-27 12:03] LABS: Glucose,Whole Blood 114 mg/dL (70-110)
--- NOTE | 2021-09-27 13:02 | P.GSCN ---
History of Present Illness Consult date: 09/27/21 Reason for Consult: Carotid stenosis Requesting physician: Juvencio Figueredo History of present illness: Nick jules pleasant 60-year-old male with multiple comorbidities came in with complaints of increased shortness of breath. His past medical history includes chronic heart failure, COPD, proximal atrial fibrillation, history of permanent pacemaker, coronary artery disease status post CABG, hypertension, hyperlipidemia, and nicotine dependence. Apparently during his hospital stay there was some concern for possible confusion. His daughter had reportedly had some concerns as well prior to him coming into the hospital with intermittent confusion. Neurology was consulted for further workup. He had a CT of the brain that reported no acute intracranial process. 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 Neurology ordered a carotid duplex reading approximately 50-69% diameter reduction of the right internal carotid artery. Vascular surgery was consulted for right internal carotid artery stenosis. The patient denies any previous history of known stroke. He denies any focal deficits. He states that he has had a lot going on at home. He states his recently had a brain aneurysm, he has not been well himself, he is trying to apply for Medicare and Medicaid. Patient states that he follows closely by his cardiologists Dr. Norwood and Dr. Arshad out of [facility]. He states that they monitor his carotid arteries annually. He states that they have never mentioned any concerns with carotid stenosis. Patient currently takes low-dose baby aspirin, Lipitor, and Eliquis. Review of Systems A 14 point review systems was completed all pertinent positives and negatives as stated in the HPI. Past Medical History Past Medical History: Atrial Fibrillation, Heart Failure, Hypertension History of Any Multi-Drug Resistant Organisms: None Reported Past Surgical History: Appendectomy, Heart Catheterization With Stent, Orthopedi c Surgery, Pacemaker Additional Past Surgical History / Comment(s): shoulder surgery, facial reconstruction of nose Date of Last Stent Placement:: 2012 Type of Cardiac Device: Permanent Pacemaker Device Placement Date:: 2012 Past Psychological History: No Psychological Hx Reported Smoking Status: Current every day smoker Past Alcohol Use History: None Reported Past Drug Use History: None Reported Medications and Allergies Home Medications Medication Instructions Recorded Confirmed Type Apixaban [Eliquis] 5 mg PO BID 09/24/21 09/24/21 History Aspirin EC [Ecotrin Low Dose] 81 mg PO DAILY 09/24/21 09/24/21 History Atorvastatin [Lipitor] 80 mg PO HS 09/24/21 09/24/21 History Furosemide [Lasix] 40 mg PO BID@0900,1600 09/24/21 09/24/21 History Nitroglycerin Sl Tabs [Nitrostat] 0.4 mg SL Q5M PRN 09/24/21 09/24/21 History carvediloL [Coreg] 6.25 mg PO BID 09/24/21 09/24/21 History lisinopriL 2.5 mg PO DAILY 09/24/21 09/24/21 History Allergies Allergy/AdvReac Type Severity Reaction Status Date / Time isosorbide [From Imdur] Allergy Anaphylaxis Verified 09/24/21 15:21 quinapril [From Accupril] Allergy Swelling Verified 09/24/21 15:21 hands, feet and joints Sulfa (Sulfonamide Allergy Rash/Hives Verified 09/24/21 15:21 Antibiotics) Surgical - Exam Vital Signs Temp Pulse Resp BP Pulse Ox 97.8 F 98 18 117/80 96 09/24/21 13:50 09/24/21 13:50 09/24/21 13:50 09/24/21 13:50 09/24/21 13:50 General appearance: The patient is alert, oriented, appears in no acute distress. HET: Head is normocephalic and atraumatic. Pupils are equal and reactive. Neck: Supple without lymphadenopathy. Trachea midline. No audible carotid bruit. Heart: S1 S2. Regular rate and rhythm. Lungs: Clear to auscultation bilaterally. Abdomen: Soft, nontender, nondistended. Extremities: Normal skin color and turgor. No cyanosis, rash, ulceration, clubbing, or edema. Radial and pedal pulses are 2/4 bilaterally. Neurological: No focal deficits. Strength and sensation are grossly intact. Patient is alert and oriented 4. He answers questions appropriately and follows commands. He has facial symmetry, tongue protrudes midline. Has good tone and strength in bilateral upper and lower extremities. Results - Labs 09/27/21 07:53 09/27/21 07:53 Abnormal Lab Results - Last 24 Hours (Table) 09/26/21 09/26/21 09/26/21 Range/Units 11:35 16:42 20:21 WBC (3.8-10.6) k/uL MCHC (31.0-37.0) g/dL Neutrophils # (1.3-7.7) k/uL Lymphocytes # (1.0-4.8) k/uL Chloride (98-107) mmol/L Carbon Dioxide (22-30) mmol/L BUN (9-20) mg/dL Glucose (74-99) mg/dL POC Glucose (mg/dL) 174 H 124 H 198 H (70-110) mg/dL Calcium (8.4-10.2) mg/dL ALT (4-49) U/L Alkaline Phosphatase (38-126) U/L Total Protein (6.3-8.2) g/dL Albumin (3.5-5.0) g/dL 09/27/21 09/27/21 09/27/21 Range/Units 06:14 07:53 07:53 WBC 18.3 H (3.8-10.6) k/uL MCHC 30.4 L (31.0-37.0) g/dL Neutrophils # 16.7 H (1.3-7.7) k/uL Lymphocytes # 0.6 L (1.0-4.8) k/uL Chloride 96 L (98-107) mmol/L Carbon Dioxide 36 H (22-30) mmol/L BUN 30 H (9-20) mg/dL Glucose 175 H (74-99) mg/dL POC Glucose (mg/dL) 122 H (70-110) mg/dL Calcium 8.2 L (8.4-10.2) mg/dL ALT 114 H (4-49) U/L Alkaline Phosphatase 129 H (38-126) U/L Total Protein 6.0 L (6.3-8.2) g/dL Albumin 3.3 L (3.5-5.0) g/dL Diabetes panel 09/27/21 Range/Units 07:53 Sodium 137 (137-145) mmol/L Potassium 4.0 (3.5-5.1) mmol/L Chloride 96 L (98-107) mmol/L Carbon Dioxide 36 H (22-30) mmol/L BUN 30 H (9-20) mg/dL Creatinine 0.68 (0.66-1.25) mg/dL Glucose 175 H (74-99) mg/dL Calcium 8.2 L (8.4-10.2) mg/dL AST 59 (17-59) U/L ALT 114 H (4-49) U/L Alkaline Phosphatase 129 H (38-126) U/L Total Protein 6.0 L (6.3-8.2) g/dL Albumin 3.3 L (3.5-5.0) g/dL Thyroid panel 09/26/21 Range/Units 15:34 TSH 0.541 (0.465-4.680) mIU/L Calcium panel 09/27/21 Range/Units 07:53 Calcium 8.2 L (8.4-10.2) mg/dL Albumin 3.3 L (3.5-5.0) g/dL Pituitary panel 09/26/21 09/27/21 Range/Units 15:34 07:53 Sodium 137 (137-145) mmol/L Potassium 4.0 (3.5-5.1) mmol/L Chloride 96 L (98-107) mmol/L Carbon Dioxide 36 H (22-30) mmol/L BUN 30 H (9-20) mg/dL Creatinine 0.68 (0.66-1.25) mg/dL Glucose 175 H (74-99) mg/dL Calcium 8.2 L (8.4-10.2) mg/dL TSH 0.541 (0.465-4.680) mIU/L Adrenal panel 09/27/21 Range/Units 07:53 Sodium 137 (137-145) mmol/L Potassium 4.0 (3.5-5.1) mmol/L Chloride 96 L (98-107) mmol/L Carbon Dioxide 36 H (22-30) mmol/L BUN 30 H (9-20) mg/dL Creatinine 0.68 (0.66-1.25) mg/dL Glucose 175 H (74-99) mg/dL Calcium 8.2 L (8.4-10.2) mg/dL Total Bilirubin 1.1 (0.2-1.3) mg/dL AST 59 (17-59) U/L ALT 114 H (4-49) U/L Alkaline Phosphatase 129 H (38-126) U/L Total Protein 6.0 L (6.3-8.2) g/dL Albumin 3.3 L (3.5-5.0) g/dL - Imaging Comments: Carotid duplex: Right ICA peak velocity 168.1 ICA/CCA ratio 3.0 left ICA peak velocity 90.0, ICA/CCA ratio 1.4 Assessment and Plan Assessment: 1. Right internal carotid artery stenosis peak systolic velocity were consistent with less than 50% stenosis 2. 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 Intermittent confusion reported per family 4. Shortness of breath 5. History of heart failure 6. History of COPD 7. History coronary artery disease status post CABG Plan: Carotid duplex reviewed. CT angiogram head and neck pending. Per neurology believed that intermittent confusion related more to metabolic/hepatic encephalopathy. Patient does follow with his computer network specialist at [facility] who have been monitoring his carotid arteries. There is no indication for any vascular surgical intervention at this time. Continue with low-dose aspirin, eliquis, and statin. Recommend further outpatient surveillance with either patient's computer network specialist or we are more than happy to see patient in our office. Thank you for this consultation and allowing us take part in the plan of care of your patient. The impression and plan of care has been dictated as directed. Dr. Chakraborty I performed a history and examination of this patient, discussed the same with the dictator. I agree with the dictator's note ,documented as a scribe. Any additional findings or plans will be noted.
--- NOTE | 2021-09-27 13:11 | CT ---
EXAMINATION TYPE: CT angio neck CT DLP: 598.3 mGycm, Automated exposure control for dose reduction was used. DATE OF EXAM: 09/27/2021 11:24 AM COMPARISON: CT brain 09/26/2021, carotid ultrasound 09/27/2021. CLINICAL INDICATION:Male, 60 years old with history of carotid stenosis; TECHNIQUE: Axially acquired helical CT angiogram of the neck was obtained with contrast utilizing 65 cc of Isovue-370 administered intravenously. Axial images are supplemented with 3D reconstructions wh ich were post-processed at an independent workstation. NASCET criteria used. FINDINGS: CTA NECK: Right Carotid System: The common carotid artery and external carotid artery are patent. There is approximately 50-70% steno sis at the carotid bifurcation at the origin of the internal carotid artery secondary to atherosclero tic calcified plaque. The remaining portions of the internal carotid artery demonstrate normal size w ithout significant narrowing. Left Carotid System: The common carotid artery and external carotid artery are patent. The carotid bifurcation demonstrate s no evidence of hemodynamically significant stenosis. The remaining portions of the internal carotid artery demonstrate normal size without significant narrowing. Vertebral arteries are patent without evidence hemodynamically significant stenosis. Vertebral artery is dominant. There is a three-vessel aortic arch. The origins of the great vessels are patent. No evidence of hemo dynamically significant stenosis. Partial visualization of bilateral pleural effusions and enlarged heart. Left chest wall dual lead ca rdiac pacemaking device partially visualized. Interlobular septal thickening and pulmonary vascular c ongestion. IMPRESSION: * Approximately 50-70% stenosis of the origin of the right internal carotid artery secondary to calc ified atherosclerotic plaque. * No significant stenosis involving the left carotid system. * Partial visualization of cardiomegaly with bilateral pleural effusions and pulmonary vascular ricardo estion with interlobular septal thickening. Correlate for acute exacerbation of CHF.
--- NOTE | 2021-09-27 15:38 | P.PN ---
Subjective Progress Note Date: 09/27/21 Principal diagnosis: Acute on chronic systolic heart failure Right-sided pleural effusion related to above Progressive shortness of breath and lower extremity edema related to above COPD exacerbation Elevated liver enzyme related to passive hepatic congestion related to heart failure Lower extremity +3 edema related to heart failure/biventricular failure Severe mitral regurgitation Paroxysmal atrial fibrillation on diet control related ocular Mild hyponatremia 09/27/2021, patient seen eval examined during the rounds labs reviewed medications reviewed care plan discussed, respirator status remains stable, patient is on room air breathing comfortably confusion has been stable neurology is following denies any chest pain 09/26/2021, patient seen eval examined during the rounds labs reviewed medications reviewed, patient remains on supplemental oxygen with thick green nasal cannula saturation are 95% hemodynamic status stable, neurology start following due to intermittent confusion which appears to be metabolic and due to multiple factors including chronic hypoxic respiratory failure chronic congestive heart failure and elevated liver enzymes Patient is a 60-year-old male with extensive history of smoking and nicotine use patient has prior medical history of hypertension and hypertensive cardiovascular disease patient presented into the hospital with progressive shortness of breath intermittent dry nonproductive cough and lower extremity edema. Patient does have a prior history of coronary artery disease status post pacemaker insertion, proximal atrial fibrillation, dyslipidemia, extensive history of smoking and nicotine use. Patient underwent computed tomography scan of the chest cardiomegaly is noted along with a right-sided pleural effusion CHF-like changes along with interstitial edema, ultrasound of the liver and gallbladder and abdomen no acute processes identified, echocardiogram revealed severe cardiomyopathy with left ventricular ejection fraction 20% with global hypokinesia along with severe MR has been noted. Labs reviewed white cell count is 12,600, PT/INR 15/1.5, sodium 134, urine creatinine is 28/0.7, total bilirubin is 3.5, AST ALT 150/163. Currently patient is being treated with bronchodilators 4 times a day along with continuation of direct oral anticoagulation, continuation of home medicines patient is being given Lasix 40 mg every 12 also on IV Solu-Medrol 40 mg every 8 hourly Objective - Vital Signs Vital signs: Vital Signs Temp 97.9 F 09/27/21 10:09 Pulse 98 09/27/21 12:41 Resp 18 09/27/21 12:41 BP 107/69 09/27/21 12:41 Pulse Ox 91 L 09/27/21 12:41 FiO2 Intake & Output 09/26/21 09/27/21 09/27/21 18:59 06:59 18:59 Intake Total 360 236 Output Total 425 Balance -65 236 Intake: Oral 360 236 Output: Urine 425 Other: Voiding Method Toilet Toilet Toilet Urinal Urinal Urinal - Exam - Constitutional General appearance: average body habitus, cooperative, disheveled - EENT Eyes: EOMI, PERRLA Ears: bilateral: normal - Neck Carotids: bilateral: upstroke normal Thyroid: bilateral: normal size - Respiratory Respiratory: bilateral: wheezing - Cardiovascular Rhythm: regular Heart sounds: normal: S1, S2 - Gastrointestinal General gastrointestinal: normal bowel sounds, soft - Integumentary + Edema of the lower extremity Integumentary: normal turgor - Neurologic Neurologic: CNII-XII intact - Musculoskeletal Musculoskeletal: gait normal, generalized weakness, strength equal bilaterally - Psychiatric Psychiatric: A&O x's 1-3, appropriate affect, intact judgment & insight - Labs CBC & Chem 7: 09/27/21 07:53 09/27/21 07:53 Labs: Abnormal Lab Results - Last 24 Hours (Table) 09/26/21 09/26/21 09/27/21 Range/Units 16:42 20:21 06:14 WBC (3.8-10.6) k/uL MCHC (31.0-37.0) g/dL Neutrophils # (1.3-7.7) k/uL Lymphocytes # (1.0-4.8) k/uL Chloride (98-107) mmol/L Carbon Dioxide (22-30) mmol/L BUN (9-20) mg/dL Glucose (74-99) mg/dL POC Glucose (mg/dL) 124 H 198 H 122 H (70-110) mg/dL Calcium (8.4-10.2) mg/dL ALT (4-49) U/L Alkaline Phosphatase (38-126) U/L Total Protein (6.3-8.2) g/dL Albumin (3.5-5.0) g/dL 09/27/21 09/27/21 09/27/21 Range/Units 07:53 07:53 11:55 WBC 18.3 H (3.8-10.6) k/uL MCHC 30.4 L (31.0-37.0) g/dL Neutrophils # 16.7 H (1.3-7.7) k/uL Lymphocytes # 0.6 L (1.0-4.8) k/uL Chloride 96 L (98-107) mmol/L Carbon Dioxide 36 H (22-30) mmol/L BUN 30 H (9-20) mg/dL Glucose 175 H (74-99) mg/dL POC Glucose (mg/dL) 114 H (70-110) mg/dL Calcium 8.2 L (8.4-10.2) mg/dL ALT 114 H (4-49) U/L Alkaline Phosphatase 129 H (38-126) U/L Total Protein 6.0 L (6.3-8.2) g/dL Albumin 3.3 L (3.5-5.0) g/dL Assessment and Plan Assessment: Altered mental status/intermittent confusion multifactorial and metabolic Acute on chronic systolic heart failure Right-sided pleural effusion related to above Progressive shortness of breath and lower extremity edema related to above COPD exacerbation Elevated liver enzyme related to passive hepatic congestion related to heart failure Lower extremity +3 edema related to heart failure/biventricular failure Severe mitral regurgitation Paroxysmal atrial fibrillation on diet control related ocular Mild hyponatremia Plan: Optimize therapy for heart failure including diuretics and afterload reducing agent Continue bronchodilators IV steroids, can start tapering it down further, can be switched to oral at the time of discharge Supplemental oxygen Deep breathing exercises incentive spirometry Smoking cessation counseling and advice Further plan of care as per clinical response of the patient Time with Patient: Greater than 30
[2021-09-27 15:44] LABS: Chol/HDL Ratio 3.17 Ratio; LDL Cholesterol,Calculated 60.1 mg/dL (0.0-131.0)
[2021-09-27 16:44] LABS: Glucose,Whole Blood 231 mg/dL (70-110)
[2021-09-27] MEDS: TAMSULOSIN 0.4 MG CAP.ER.24H PO SCH (17:30)
--- NOTE | 2021-09-27 17:30 | P.GSCN ---
History of Present Illness Consult date: 09/27/21 Reason for Consult: Mitral valve regurgitation Requesting physician: Alex Razo History of present illness: This is a 60-year-old gentleman who use to follow with Dr. Bullard for primary care but since his intermediate patient no longer follows with a primary care physician. He does follow with Dr. Modesto Peck for cardiology and Dr. Delmy Arshad for electrophysiology at [facility]. He has a previous medical history of coronary artery disease with 2 prior myocardial infarctions with stent placement, sick sinus syndrome status post Medtronic permanent pacemaker/AICD, known mitral valve regurgitation, paroxysmal atrial fibrillation on Eljiquis for anticoagulation, hypertension, recent syncopal episode, known right internal carotid artery stenosis, current tobacco dependence, and significant stress at home per patient. This gentleman presented to [facility] emergency room on September 24 for complaints of shortness of breath and lower extremity edema. Chest x-ray demonstrated early interstitial edema and cardiomegaly. Lab work revealed WBC 12.6, creatinine 0.71, AST 163, AOT 150, total bilirubin 3.5, troponin 0.031, and proBNP 11,800. The patient was admitted for evaluation and treatment with consultation placed to cardiology and pulmonology. Chest CT was completed demonstrating right-sided pleural effusion and cardiomegaly with chronic congestive heart failure. Transthoracic echocardiogram demonstrated impaired left ventricular systolic function with ejection fraction 20%, grade 3 diastolic dysfunction, mild mitral stenosis with severe mitral regurgitation with posterior leaflet tethering and posteriorly directed jet. Again the patient has a known history of mitral regurgitation which he follows with Dr. Peck for, patient states he has never had a ARIADNA, his last transthoracic echocardiogram was done in March of this year. Of note, there was some concern for confusion and a neurology consult was placed. Brain CT revealed nothing acute, remote injury in the right MCA involving the right frontal lobe. Carotid Dopplers revealed right ICA stenosis which was confirmed by CTA completed today. Vascular surgery was consulted with no plans for surgical intervention at this time. Due to the patient's mitral regurgitation consultation was placed to cardiothoracic surgery by Dr. Razo for surgical recommendations. Review of Systems - Cardiovascular Reports as per HPI, Reports dyspnea on exertion, Reports leg edema - Respiratory Reports as per HPI, Reports dyspnea Past Medical History Past Medical History: Atrial Fibrillation, Coronary Artery Disease (CAD), Heart Failure, Hypertension, Myocardial Infarction ([place]), Pneumonia, Syncope History of Any Multi-Drug Resistant Organisms: None Reported Past Surgical History: Appendectomy, Heart Catheterization With Stent, Orthopedic Surgery, Pacemaker, Tonsillectomy Additional Past Surgical History / Comment(s): shoulder surgery, facial reconstruction of nose; Medtronic permanent pacemaker/AICD Date of Last Stent Placement:: 2012 Type of Cardiac Device: Permanent Pacemaker Device Placement Date:: 2012 Past Psychological History: No Psychological Hx Reported Smoking Status: Current every day smoker Past Alcohol Use History: None Reported Past Drug Use History: None Reported - Past Family History Mother Family Medical History: CVA/TIA Father Family Medical History: Cancer Additional Family Medical History / Comment(s): from lung cancer Medications and Allergies Home Medications Medication Instructions Recorded Confirmed Type Apixaban [Eliquis] 5 mg PO BID 09/24/21 09/24/21 History Aspirin EC [Ecotrin Low Dose] 81 mg PO DAILY 09/24/21 09/24/21 History Atorvastatin [Lipitor] 80 mg PO HS 09/24/21 09/24/21 History Furosemide [Lasix] 40 mg PO BID@0900,1600 09/24/21 09/24/21 History Nitroglycerin Sl Tabs [Nitrostat] 0.4 mg SL Q5M PRN 09/24/21 09/24/21 History carvediloL [Coreg] 6.25 mg PO BID 09/24/21 09/24/21 History lisinopriL 2.5 mg PO DAILY 09/24/21 09/24/21 History Allergies Allergy/AdvReac Type Severity Reaction Status Date / Time isosorbide [From Imdur] Allergy Anaphylaxis Verified 09/24/21 15:21 quinapril [From Accupril] Allergy Swelling Verified 09/24/21 15:21 hands, feet and joints Sulfa (Sulfonamide Allergy Rash/Hives Verified 09/24/21 15:21 Antibiotics) Surgical - Exam Vital Signs Temp Pulse Resp BP Pulse Ox 97.8 F 98 18 117/80 96 09/24/21 13:50 09/24/21 13:50 09/24/21 13:50 09/24/21 13:50 09/24/21 13:50 CONSTITUTIONAL: Awake and alert, appears comfortable, cooperative, well-developed, well-nourished, no pain, no acute distress EYES: Pupils equal, round, reactive to light, normal ocular movement ENT: Moist mucous membranes without oral lesions present NECK: No masses, no bruits, trachea midline RESPIRATORY: Lungs sounds diminished in the bases bilaterally. Respirations even, nonlabored. Currently on room air with oxygen saturation 94%. Strong cough. No chest wall deformities. No clubbing or cyanosis present CARDIOVASCULAR: S1, S2 present. Regular rate and rhythm, 100% AV paced on telemetry. Palpable peripheral pulses bilaterally. Bilateral lower extremity edema present. No calf pain or tenderness noted. GASTROINTESTINAL: Abdomen soft, nontender, nondistended without masses or organomegaly noted. There is no rebound or guarding present. Active bowel s ounds present 4 quadrants. GENITOURINARY: Deferred INTEGUMENTARY: Skin is warm and dry with evidence of good perfusion. Bilateral lower extremities Jean-Pierre wrapped from toes to knees NEUROLOGIC: Cranial nerves II through XII intact, normal coordination, no obvious motor or sensory deficits, speech is normal MUSKULOSKELETAL: Able to move all extremities, strength equal bilaterally, normal posture PSYCHIATRIC: Alert and oriented to person place and time, appropriate affect, intact judgment and insight Results - Labs 09/27/21 07:53 09/27/21 07:53 Abnormal Lab Results - Last 24 Hours (Table) 09/26/21 09/27/21 09/27/21 Range/Units 20:21 06:14 07:53 WBC (3.8-10.6) k/uL MCHC (31.0-37.0) g/dL Neutrophils # (1.3-7.7) k/uL Lymphocytes # (1.0-4.8) k/uL Chloride 96 L (98-107) mmol/L Carbon Dioxide 36 H (22-30) mmol/L BUN 30 H (9-20) mg/dL Glucose 175 H (74-99) mg/dL POC Glucose (mg/dL) 198 H 122 H (70-110) mg/dL Calcium 8.2 L (8.4-10.2) mg/dL ALT 114 H (4-49) U/L Alkaline Phosphatase 129 H (38-126) U/L Total Protein 6.0 L (6.3-8.2) g/dL Albumin 3.3 L (3.5-5.0) g/dL HDL Cholesterol (40.00-60.00) mg/dL 09/27/21 09/27/21 09/27/21 Range/Units 07:53 07:53 11:55 WBC 18.3 H (3.8-10.6) k/uL MCHC 30.4 L (31.0-37.0) g/dL Neutrophils # 16.7 H (1.3-7.7) k/uL Lymphocytes # 0.6 L (1.0-4.8) k/uL Chloride (98-107) mmol/L Carbon Dioxide (22-30) mmol/L BUN (9-20) mg/dL Glucose (74-99) mg/dL POC Glucose (mg/dL) 114 H (70-110) mg/dL Calcium (8.4-10.2) mg/dL ALT (4-49) U/L Alkaline Phosphatase (38-126) U/L Total Protein (6.3-8.2) g/dL Albumin (3.5-5.0) g/dL HDL Cholesterol 37.90 L (40.00-60.00) mg/dL 09/27/21 Range/Units 16:42 WBC (3.8-10.6) k/uL MCHC (31.0-37.0) g/dL Neutrophils # (1.3-7.7) k/uL Lymphocytes # (1.0-4.8) k/uL Chloride (98-107) mmol/L Carbon Dioxide (22-30) mmol/L BUN (9-20) mg/dL Glucose (74-99) mg/dL POC Glucose (mg/dL) 231 H (70-110) mg/dL Calcium (8.4-10.2) mg/dL ALT (4-49) U/L Alkaline Phosphatase (38-126) U/L Total Protein (6.3-8.2) g/dL Albumin (3.5-5.0) g/dL HDL Cholesterol (40.00-60.00) mg/dL Diabetes panel 09/27/21 09/27/21 Range/Units 07:53 07:53 Sodium 137 (137-145) mmol/L Potassium 4.0 (3.5-5.1) mmol/L Chloride 96 L (98-107) mmol/L Carbon Dioxide 36 H (22-30) mmol/L BUN 30 H (9-20) mg/dL Creatinine 0.68 (0.66-1.25) mg/dL Glucose 175 H (74-99) mg/dL Calcium 8.2 L (8.4-10.2) mg/dL AST 59 (17-59) U/L ALT 114 H (4-49) U/L Alkaline Phosphatase 129 H (38-126) U/L Total Protein 6.0 L (6.3-8.2) g/dL Albumin 3.3 L (3.5-5.0) g/dL Triglycerides 110.00 (0.00-149.00) mg/dL HDL Cholesterol 37.90 L (40.00-60.00) mg/dL Calcium panel 09/27/21 Range/Units 07:53 Calcium 8.2 L (8.4-10.2) mg/dL Albumin 3.3 L (3.5-5.0) g/dL Pituitary panel 09/27/21 Range/Units 07:53 Sodium 137 (137-145) mmol/L Potassium 4.0 (3.5-5.1) mmol/L Chloride 96 L (98-107) mmol/L Carbon Dioxide 36 H (22-30) mmol/L BUN 30 H (9-20) mg/dL Creatinine 0.68 (0.66-1.25) mg/dL Glucose 175 H (74-99) mg/dL Calcium 8.2 L (8.4-10.2) mg/dL Adrenal panel 09/27/21 Range/Units 07:53 Sodium 137 (137-145) mmol/L Potassium 4.0 (3.5-5.1) mmol/L Chloride 96 L (98-107) mmol/L Carbon Dioxide 36 H (22-30) mmol/L BUN 30 H (9-20) mg/dL Creatinine 0.68 (0.66-1.25) mg/dL Glucose 175 H (74-99) mg/dL Calcium 8.2 L (8.4-10.2) mg/dL Total Bilirubin 1.1 (0.2-1.3) mg/dL AST 59 (17-59) U/L ALT 114 H (4-49) U/L Alkaline Phosphatase 129 H (38-126) U/L Total Protein 6.0 L (6.3-8.2) g/dL Albumin 3.3 L (3.5-5.0) g/dL - Imaging Chest x-ray: report reviewed, image reviewed CT scan - chest: report reviewed, image reviewed EKG: image reviewed Assessment and Plan Assessment: 1. Severe mitral regurgitation with posterior leaflet tethering and posteriorly are directed jet, known history of mitral regurgitation 2. Acute on chronic combined systolic and diastolic heart failure, EF 20%, BNP 11,800 on admission 3. History of coronary artery disease with 2 prior myocardial infarctions with stent placement 4. History of sick sinus syndrome status post Medtronic permanent pacemaker/AICD 5. Paroxysmal atrial fibrillation on Eliquis for anticoagulation 6. History of hypertension 7. Recent syncopal episode 8. Known right internal carotid artery stenosis 9. Current tobacco dependence with probable COPD 10. Significant stress at home 11. Elevated LFTs on admission Plan: The patient was seen and examined sitting up in bed on the cardiac stepdown unit in no acute distress. Chart/diagnostics were reviewed. The patient states he feels significantly better than when he came in and is looking forward to discharge to home tomorrow. He states he has a known history of mitral regurgitation which he has been following very closely with his policy advisor at [facility]. We did discuss surgical mitral valve repair which patient may need in the future. We did inform the patient that mitral valve surgery is done here [facility] if he wishes to pursue surgical intervention here. He would need transesophageal echocardiogram first as well as dental clearance and this was discussed with the patient. He was counseled regarding smoking cessation. The patient wishes to discuss mitral valve intervention with his own policy advisor first. Our contact information was given to the patient should he decide to have his mitral valve surgically repaired here. The case was d iscussed with Dr. Cadet. From our standpoint the patient may be discharged when okay with other services to follow up with his primary policy advisor for future planning regarding his mitral valve. Medical management of other comorbidities per primary care service. Thank you Dr. Razo for this consult. Please call us with any further questions. I have personally seen and examined the patient, performed the documentation and the assessment and plan as written. Number of minutes spent on the visit: 30. NEELAM Zuniga
[2021-09-27] MEDS ORDERED: FUROSEMIDE 40 MG TAB PO SCH (18:00)
--- NOTE | 2021-09-27 19:08 | PN ---
PROGRESS NOTE This is a 60-year-old white male who had a brain CT on 09/26/2021 that showed a remote injury in the right MCA and no intracranial process. He has a CTA of the neck ordered. He had a carotid Doppler also ordered, which is pending. He states he is breathing better. He had elevated liver enzymes secondary to hepatic congestion due to heart failure. He has COPD. He has right-sided pleural effusion related to his chronic systolic heart failure and COPD, 3+ edema, biventricular failure, severe mitral regurgitation, paroxysmal atrial fibrillation. Discussed with him the need for possibly going to a tertiary center to get his valve looked at, as he has severe mitral insufficiency. Discussed the case with him. Otherwise, he appears to be improving with his breathing. Temperature 97.8, pulse 90, respiratory rate 16 to 18, blood pressure 106/75, O2 95. Cardiovascular S1-S2. Lungs are clear. Neurologic: Alert and oriented x3. Psych fair mood and affect. BUN is 34, creatinine 0.7. White count 12.6. ASSESSMENT: 1. Altered mental status with intermittent confusion. 2. chronic systolic heart failure. 3. Right-sided pleural effusion. 4. Progressive shortness of breath. 5. Chronic obstructive pulmonary disease exacerbation. 6. Elevated liver enzymes. 7. Biventricular failure. 8. Severe mitral regurgitation. 9. Paroxysmal atrial fibrillation. 10.Hyponatremia. Continue to treat CHF, COPD, steroids, etc. Possibly get Cardiac Surgery to see for severe mitral regurgitation. Prognosis is guarded. MMWILBERTL / GLORIAN: [id number] /
[2021-09-27 20:46] LABS: Glucose,Whole Blood 96 mg/dL (70-110)
[2021-09-27] MEDS: ATORVASTATIN 80 MG TAB PO SCH (21:13)
[2021-09-28 06:04] LABS: Glucose,Whole Blood 138 mg/dL (70-110)
[2021-09-28] MEDS: INSULIN ASPART (NovoLOG) 100 UNIT/ML VIAL SQ SCH (06:09)
[2021-09-28] MEDS: carvediloL 6.25 MG TAB PO SCH (06:09)
[2021-09-28 08:41] VITALS: BP 109/73; RESP 15; TEMP 97.5
[2021-09-28] MEDS: IPRATROPIUM-ALBUTEROL 3 ML NEB INHALATION SCH ×2 (08:44→11:54)
[2021-09-28 08:46] VITALS: PULSE 85
[2021-09-28] MEDS: NICOTINE 21MG/24HR PATCH TRANSDERM SCH (08:48)
[2021-09-28] MEDS: methylPREDNISolone SOD SUCCI 40 MG/ML 1 ML VIAL IV SCH (08:50)
[2021-09-28] MEDS: ASPIRIN 81 MG PO SCH (08:50)
[2021-09-28] MEDS: APIXABAN 5 MG TAB PO SCH (08:50)
[2021-09-28] MEDS: FUROSEMIDE 80 MG TAB PO SCH (08:50)
--- NOTE | 2021-09-28 12:36 | P.PN ---
Subjective Progress Note Date: 09/28/21 The patient seen at bedside and he stated that he is doing well he is accompanied with his daughter and she agrees that he's doing well. Seems that the patient has history of carotid stenosis and he follows up with a hospital fellow as an outpatient Objective - Vital Signs Vital signs: Vital Signs Temp 97.5 F L 09/28/21 08:34 Pulse 85 09/28/21 08:55 Resp 15 09/28/21 08:36 BP 109/73 09/28/21 08:34 Pulse Ox 90 L 09/28/21 08:34 FiO2 Intake & Output 09/27/21 09/28/21 09/28/21 18:59 06:59 18:59 Intake Total 836 400 Balance 836 400 Weight 89.1 kg Intake: Oral 836 400 Other: Voiding Method Toilet Toilet Toilet Urinal Urinal Urinal # Voids 4 - Exam GENERAL: The patient is lying in bed and is not in acute distress. HENT: Supple neck. CHEST: The heart rate is regular rate rhythm. No murmurs to auscultation. LUNG: Clear to auscultation bilaterally no wheezing noted throughout. Not labored breathing. ABDOMEN/GI: Bowel sounds present in all 4 quadrants. No tenderness to palpation throughout. NEUROLOGICAL: Higher mental function: The patient is awake, alert, oriented to self, place and time. Patient is following simple commands. Is able to identify objects correctly (pen, watch, glasses). Correctly stated he is currently in [place]. No aphasia and no neglect. Cranial nerves: The pupils are round, equal and reactive to light and accommodation. Visual drummond are full to confrontation throughout. Extraocular movement is intact no nystagmus is noted. Facial sensation is normal to touch throughout. The facial strength is normal throughout. Hearing is normal bilaterally to hand rub. Tongue is midline and moved [id number] without any difficulty. No dysarthria is noted. Shoulder shrug is normal bilaterally. Motor: Gait is normal. The strength is 5 over 5 throughout. Normal tone and b ulk. Has moderate amount edema in lowers 2+. Cerebellum: Normal finger to nose bilaterally. Sensation: Sensation is normal to touch throughout. Reflexes (right/left): 1+ throughout. Plantars are downgoing bilaterally. SOME OF THE WORK-UP DURING THIS HOSPITAL VISIT CONSISTED OF: AST 163, LT 150. Repeated is AST of 59 and ALT of 114. Ammonia level is less than 9 Folate is 12.3 Vitamin B12 is 830 TSH is 0.541 Lipid panels triglyceride of 110, cholesterol 120, LDL 60 and HDL is 37. 2D echo: severe cardiomyopathy with left fraction 20% with global hypokines, Dilated left atrial. Severe mitral regurgitation with predominately posterior leaflet tethering and posteriorly directed jet. CT of the head is reported as no acute intracranial process. 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 I personally reviewed the CT of the head and this does not look acute. I do not have any previous images to compared to. Routine EEG is abnormal. The background slowing is suggestive of mild encephalopathy. Otherwise there is no focal slowing, epileptiform discharges or seizure on the EEG. Carotid duplex is reported as hemodynamic significant stenosis of the proximal internal carotid artery on the right corresponding to approximately 50-69 diameter reduction by Doppler criteria, and in direct measurement of carotid stenosis. CT angiography of the neck is reported as approximately 50-70% stenosis of the origin of her right internal carotid artery secondary due to calcified atherosclerotic plaque. No significant stenosis involving the left carotid system. - Labs CBC & Chem 7: 09/27/21 07:53 09/27/21 07:53 Labs: Abnormal Lab Results - Last 24 Hours (Table) 09/27/21 09/27/21 09/28/21 Range/Units 07:53 16:42 05:54 POC Glucose (mg/dL) 231 H 138 H (70-110) mg/dL HDL Cholesterol 37.90 L (40.00-60.00) mg/dL Assessment and Plan Assessment: Transient episode of confusion. Seems due to hepatic encephalopathy, component of hypoxic encephalopathy (PO2 was as low as 88%) due shortness of breath due to acute on chronic heart failure. Currently is oriented X4 and no focal deficits Delerium due to above---resolved. 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 Patient is not aware he had stroke in past. Appears embolic (hx of atrial fibrillation and had right carotid stenosis 50-70%). Right ICA stenosis 50-70% (is being monitored by hospital fellow as outpatient) Syncopal episode (reported one episode at home): Possible due to heart failure Acute on chronic heart failure with reduced ejection fraction of about 20% Elevated liver function test--trending down Pacemaker Paroxysmal atrial fibrillation on eliquis Dilated left atrium Severe mitral regurgitation Hypertension Hyperlipidemia Nicotine use Plan: Currently he is on his home medication of eliquis 5mg bid. He is also on ASA 81mg daily and Lipitor 80mg qhs and those are sufficient for secondary stroke prophylaxis. I consulted vascular surgery team yesterday and a valid the patient and no surgical intervention. They're recommending medical management. Patient has known history of right ICA stenosis and is following up with a hospital fellow as an outpatient. Cardiology is on board Pulmonary team is on board Patient was counseled on tobacco cessation. We'll defer the rest of the medical management to primary team. Patient was notified that he is to follow up with a neurologist as an outpatient within 1-2 weeks. The plan is discussed with patient, his daughter who is at bedside and his nurse. No additional workup and the patient is clear from a neurologic perspective. Juvencio Figueredo M.D. Neuro-Hospitalist Time with Patient: Less than 30
--- NOTE | 2021-09-28 17:06 | PN ---
PROGRESS NOTE FOLLOW-UP NOTE: This is a 60-year-old gentleman who is admitted to hospital with paroxysmal atrial fibrillation, history of permanent pacemaker, congestive heart failure, hypertension, dyslipidemia, who regularly follows with a greenskeeper supervisor out of [place]. He came in with congestive heart failure exacerbation. I am seeing him for the first time today. He appears better. His leg edema has improved. Shortness of breath has improved and he is eager to go home. The patient has a history of mitral regurgitation, and a cardiothoracic surgeon evaluated him on this admission. On exam he is comfortable at rest. Vital signs are stable. Chest exam reveals good air entry bilaterally. Heart exam reveals first and second heart sounds, a systolic murmur at the apex. Abdomen is soft. Examination of extremities reveals 1+ bilateral edema. The patient is currently on aspirin, Eliquis, Lipitor, Coreg 6.25 b.i.d., Lasix 40 mg daily, insulin, Zestril and Medrol Dosepak. ASSESSMENT: Acute exacerbation of chronic congestive heart failure. PLAN: Patient is on optimal medical therapy. Increase his activity. MMODL / IJN: [id number] /
[2021-09-29] MEDS ORDERED: methylPREDNISolone 4 MG TAB TAPER PO SCH (09:00)
--- NOTE | 2021-09-30 16:08 | CONS ---
CONSULTATION DATE OF SERVICE: 09/27/21 I met with this patient for 45 minutes during this consultation. I have seen, examined, and agree with the midlevel's findings. MMWILBERTL / GLORIAN: [id number] / -01
== END 2021-09-28 12:18 | disposition home or self-care (01) | DRG 291 ==
LOC: EC 13:38 → 6NMEDSUR 14:48 → 3SCARD 17:26 → OBSVTOIN 09-25 14:24
PROVIDERS: ADMIT Family Medicine; ATTEND Family Medicine
DX: I11.0 Hypertensive heart disease with heart failure (principal); I50.43 Acute on chronic combined systolic (congestive) and diastolic (congestive) heart failure; E87.1 Hypo-osmolality and hyponatremia; G93.1 Anoxic brain damage, not elsewhere classified; I48.21 Permanent atrial fibrillation; J44.1 Chronic obstructive pulmonary disease with (acute) exacerbation; N13.8 Other obstructive and reflux uropathy; D72.829 Elevated white blood cell count, unspecified; E78.5 Hyperlipidemia, unspecified; F17.210 Nicotine dependence, cigarettes, uncomplicated; I05.2 Rheumatic mitral stenosis with insufficiency; I25.10 Atherosclerotic heart disease of native coronary artery without angina pectoris; I25.2 Old myocardial infarction; I25.5 Ischemic cardiomyopathy; I50.82 Biventricular heart failure; I65.21 Occlusion and stenosis of right carotid artery; K72.90 Hepatic failure, unspecified without coma; K76.1 Chronic passive congestion of liver; N39.43 Post-void dribbling; N40.1 Benign prostatic hyperplasia with lower urinary tract symptoms; R09.02 Hypoxemia; Z95.1 Presence of aortocoronary bypass graft; Z79.01 Long term (current) use of anticoagulants; Z79.82 Long term (current) use of aspirin; Z79.899 Other long term (current) drug therapy; Z80.1 Family history of malignant neoplasm of trachea, bronchus and lung; Z82.3 Family history of stroke; Z86.2 Personal history of diseases of the blood and blood-forming organs and certain disorders involving the immune mechanism; Z95.5 Presence of coronary angioplasty implant and graft; Z95.810 Presence of automatic (implantable) cardiac defibrillator; Z87.01 Personal history of pneumonia (recurrent); Z88.2 Allergy status to sulfonamides; Z71.6 Tobacco abuse counseling
CPT/HCPCS: 36415; 70450; 70498; 71046; 71250; 76700; 80048; 80053; 80061; 81001; 82140; 82607; 82746; 83735; 83880; 84443; 84484; 85025; 85610; 85730; 93005; 93306; 93880; 94640; 94760; 95816; 96374; 99285